=== PATIENT | female | born 1940 | race African-American/Black ===

== ENCOUNTER 2016-12-31 02:57 | Inpatient (IN) | payer MEDICARE, MEDICAID ==
[2016-12-31] VITALS (32 sets, daily range): BP systolic 110–154; BP diastolic 48–88
[~2016-12-31] VITALS: Ht 165.1 cm; Wt 97.5 kg
[~2016-12-31 02:57] MED LIST: ACET-3161 PO; ASPI-1159 PO; AZOR PO; BRIM5DRO OP; CLOP75TA33 PO; D-ME118S13 PO; DEXL60CA3 PO; ELIQUIS PO; IBUP100O15 PO; JENTADUETO PO; [UNRECOGNIZED DRUG - OTHER]
[2016-12-31] MEDS ORDERED: KETAMINE HCL 50 MG/ML 10ML IV ONE (03:00)
[2016-12-31] MEDS ORDERED: SUCCINYLCHOLINE CHLORIDE 200MG/10ML VIAL IV ONE ×2 (03:15→06:00)
[2016-12-31] MEDS ORDERED: PROPOFOL 10MG/ML 100ML 100 ML IV ONE ×2 (03:15→04:15)
[2016-12-31 03:21] LABS: BASOPHILS % 0.4 % (0.0-2.0); EOSINOPHILS % 0.9 % (0.0-5.0); HEMATOCRIT. 38.9 % (36.0-48.0); HEMOGLOBIN. 12.7 g/dL (12.0-16.0); LYMPHOCYTES % 25.5 % (20.0-50.0); MEAN CORPUSCULAR HEMOGLOBIN 26.7 pg (28.0-32.0); MEAN PLATELET VOLUME 7.4 fl (7.4-10.4); MONOCYTES % 10.7 % (2.0-8.0); NEUTROPHILS % 62.5 % (40.0-76.0); PLATELET 320 x1000/uL (130-400); RED BLOOD CELL COUNT 4.74 mill/uL (4.2-5.4); RED CELL DISTRIBUTION WIDTH 14.9 % (11.6-14.6)
[2016-12-31 03:35] LABS: PROTHROMBIN TIME 10.6 sec
[2016-12-31 03:36] LABS: CARBON DIOXIDE 19 mEq/L (21-32); CHLORIDE 94 mEq/L (98-107); TROPONIN I < 0.02 ng/mL (0.00-0.04)
[2016-12-31] MEDS ORDERED: SODIUM CHLORIDE 0.9% 1,000 ML IV ONE (04:06)
[2016-12-31] MEDS ORDERED: DIPHENHYDRAMINE 50MG/ML VIAL IV ONE (04:15)
[2016-12-31] MEDS ORDERED: DEXAMETHASONE 10MG/ML 1ML VIAL IV ONE (04:15)
[2016-12-31] MEDS ORDERED: FAMOTIDINE 20MG/2ML VIAL IV ONE (04:15)
[2016-12-31 05:01] LABS: BG BASE EXCESS -4.1 mmol/L (-2.0-2.0); BG CARBOXYHEMOGLOBIN 0.4 % (0.5-1.5); BG DEOXYHEMOGLOBIN 0.9 % (0.0-5.0); BG FRACTION INSPIRED OXYGEN 40; BG HCO3 ACT 20.1 mmol/L (22.0-26.0); BG METHEMOGLOBIN 0.5 % (0.0-1.5); BG OXYGEN SATURATION 99.1 % (92.0-98.5); BG OXYHEMOGLOBIN 98.2 % (94.0-97.0); BG PH 7.389 (7.350-7.450); BG PO2 160.8 mmHg (75.0-100.0); BG SAMPLE SITE RIGHT RADIAL; BG TIDAL VOLUME(mL) 500 mL; BG TOTAL HEMOGLOBIN 12.9 g/dL (12.0-18.0); BG VENT MODE VENT - A/C; BG VENT RATE 12 set
[2016-12-31] MEDS ORDERED: MIDAZOLAM HCL 50 MG in DEXTROSE 5% WATER 40 ML IV ONE ×4 (05:45)
[2016-12-31] MEDS ORDERED: MIDAZOLAM HCL 50 MG in DEXTROSE 5% WATER 40 ML IV PRN ×2 (05:45→08:00)
[2016-12-31] MEDS ORDERED: DIPHENHYDRAMINE 50MG/ML VIAL IV PRN (08:00)
[2016-12-31] MEDS: IPRATROPIUM/ALBUTEROL 0.5-3(2.5)MG/3ML NEB HHN SCH ×5 (08:00→23:55)
[2016-12-31] MEDS ORDERED: GUAIFENESIN 200MG/10ML SUGAR FREE UDC PO PRN (08:00)
[2016-12-31] MEDS ORDERED: ONDANSETRON HCL 4MG/2ML VIAL IV PRN (08:00)
[2016-12-31] MEDS ORDERED: CLONIDINE 0.1MG TABLET PO PRN (08:00)
[2016-12-31] MEDS ORDERED: DOCUSATE SODIUM 100MG CAPSULE PO PRN (08:00)
[2016-12-31] MEDS ORDERED: ACETAMINOPHEN 325MG TABLET PO PRN (08:00)
[2016-12-31] MEDS ORDERED: NA PHOS,M-B/NA PHOS,DI-BA ENEMA 118ML PR PRN (08:00)
[2016-12-31] MEDS ORDERED: LORAZEPAM 2MG/ML CPJ IV PRN (08:00)
[2016-12-31] MEDS ORDERED: MORPHINE SULFATE 4 MG/ML CPJ (NOT FOR IM USE) IV PRN (08:00)
[2016-12-31] MEDS ORDERED: IPRATROPIUM/ALBUTEROL 0.5-3(2.5)MG/3ML NEB INH PRN (08:00)
[2016-12-31] MEDS ORDERED: MAGNESIUM/ALUMINUM HYDROXIDE/SIMETHICONE 30ML UDC PO PRN (08:00)
[2016-12-31] MEDS: METHYLPREDNISOLONE SOD SUCC 125 MG/2 ML VIAL IV SCH ×3 (08:29→22:00)
[2016-12-31] MEDS: PANTOPRAZOLE SODIUM 40 MG/VIAL IV SCH (08:29)
[2016-12-31] MEDS: ENOXAPARIN 40MG/0.4ML SYR SUBCUT SCH (08:29)
[2016-12-31] MEDS ORDERED: METHYLPREDNISOLONE SOD SUCC 40 MG/ML VIAL IV SCH (10:15)
[2016-12-31] MEDS ORDERED: IPRATROPIUM/ALBUTEROL 0.5-3(2.5)MG/3ML NEB HHN PRN (10:15)
[2016-12-31] MEDS: FAMOTIDINE 20MG/2ML VIAL IV SCH ×2 (10:33→20:50)
[2016-12-31] MEDS: DEXT 5%/0.45% NACL 1000ML 1,000 ML IV SCH (10:34)
[2016-12-31] MEDS: DIPHENHYDRAMINE 50MG/ML VIAL IV SCH ×3 (10:34→21:59)
[2016-12-31] MEDS: MORPHINE SULFATE 2 MG/ML CPJ (NOT FOR IM USE) IV PRN ×2 (10:49→20:50)
[2016-12-31 11:18] LABS: *AMPHETAMINES SCREEN URINE NEGATIVE (NEGATIVE); *BARBITURATES SCREEN URINE NEGATIVE (NEGATIVE); *BENZODIAZEPINES SCREEN URINE PRESUMTIVE POSITIVE (NEGATIVE); *COCAINE SCREEN URINE NEGATIVE (NEGATIVE); CANNABINOID URINE SCREEN NEGATIVE (NEGATIVE); METHADONE URINE SCREEN NEGATIVE (NEGATIVE); OPIATES URINE SCREEN NEGATIVE (NEGATIVE); PHENCYCLIDINE URINE SCREEN NEGATIVE (NEGATIVE)
[2016-12-31] MEDS: BUDESONIDE 0.5MG/2ML NEB HHN SCH ×3 (11:52→23:55)
[2016-12-31] MEDS: PROPOFOL 10MG/ML 100ML 100 ML IV PRN ×2 (12:09→17:56)
[2016-12-31 16:54] LABS: CREATINE KINASE MB FRACTION 1.6 ng/mL (0.5-3.6); TROPONIN I 0.11 ng/mL (0.00-0.04)
[2016-12-31] MEDS ORDERED: DEXTROSE 50% WATER 50ML SYRINGE IV PRN (20:15)
[2016-12-31] MEDS: INSULIN LISPRO 100 UNITS/ML SUBCUT SCH (21:06)
[2016-12-31] MEDS: BLOOD SUGAR DIAGNOSTIC STRIP TEST SCH (21:14)
[2017-01-01] VITALS (44 sets, daily range): BP systolic 105–156; BP diastolic 43–94
[2017-01-01] MEDS: PROPOFOL 10MG/ML 100ML 100 ML IV PRN ×6 (00:32→20:49)
[2017-01-01] MEDS: DEXT 5%/0.45% NACL 1000ML 1,000 ML IV SCH ×3 (00:33→23:42)
[2017-01-01 01:10] LABS: CREATINE KINASE MB FRACTION 1.9 ng/mL (0.5-3.6); TROPONIN I 0.06 ng/mL (0.00-0.04)
[2017-01-01] MEDS: IPRATROPIUM/ALBUTEROL 0.5-3(2.5)MG/3ML NEB HHN SCH ×6 (04:02→23:32)
[2017-01-01] MEDS: DIPHENHYDRAMINE 50MG/ML VIAL IV SCH ×4 (04:50→22:18)
[2017-01-01] MEDS: METHYLPREDNISOLONE SOD SUCC 125 MG/2 ML VIAL IV SCH ×3 (05:25→22:18)
[2017-01-01 08:07] LABS: BG BASE EXCESS -5.6 mmol/L (-2.0-2.0); BG CARBOXYHEMOGLOBIN 0.2 % (0.5-1.5); BG DEOXYHEMOGLOBIN 1.7 % (0.0-5.0); BG FRACTION INSPIRED OXYGEN 28; BG HCO3 ACT 16.5 mmol/L (22.0-26.0); BG METHEMOGLOBIN 0.5 % (0.0-1.5); BG OXYGEN SATURATION 98.3 % (92.0-98.5); BG OXYHEMOGLOBIN 97.6 % (94.0-97.0); BG PH 7.455 (7.350-7.450); BG PO2 111.1 mmHg (75.0-100.0); BG SAMPLE SITE RIGHT RADIAL; BG TIDAL VOLUME(mL) 500 mL; BG TOTAL HEMOGLOBIN 12.8 g/dL (12.0-18.0); BG VENT MODE VENT - A/C; BG VENT RATE 12 set
[2017-01-01] MEDS: ENOXAPARIN 40MG/0.4ML SYR SUBCUT SCH (08:13)
[2017-01-01] MEDS: PANTOPRAZOLE SODIUM 40 MG/VIAL IV SCH (08:13)
[2017-01-01] MEDS: BLOOD SUGAR DIAGNOSTIC STRIP TEST SCH ×4 (08:13→20:49)
[2017-01-01] MEDS: FAMOTIDINE 20MG/2ML VIAL IV SCH ×2 (08:13→20:49)
[2017-01-01] MEDS: INSULIN LISPRO 100 UNITS/ML SUBCUT SCH ×4 (08:14→22:24)
[2017-01-01] MEDS ORDERED: PROPOFOL 10MG/ML 100ML 100 ML IV PRN (11:00)
[2017-01-01] MEDS: BUDESONIDE 0.5MG/2ML NEB HHN SCH (12:35)
[2017-01-02] VITALS (39 sets, daily range): BP systolic 124–182; BP diastolic 64–110
[2017-01-02] MEDS: PROPOFOL 10MG/ML 100ML 100 ML IV PRN ×4 (00:10→10:20)
[2017-01-02] MEDS: IPRATROPIUM/ALBUTEROL 0.5-3(2.5)MG/3ML NEB HHN SCH ×5 (03:52→20:42)
[2017-01-02] MEDS: DIPHENHYDRAMINE 50MG/ML VIAL IV SCH ×4 (04:05→22:12)
[2017-01-02] MEDS: METHYLPREDNISOLONE SOD SUCC 125 MG/2 ML VIAL IV SCH ×3 (05:44→22:13)
[2017-01-02] MEDS: BUDESONIDE 0.5MG/2ML NEB HHN SCH ×2 (08:19→20:42)
[2017-01-02] MEDS: BLOOD SUGAR DIAGNOSTIC STRIP TEST SCH ×4 (08:29→20:30)
[2017-01-02] MEDS: INSULIN LISPRO 100 UNITS/ML SUBCUT SCH ×4 (08:30→21:17)
[2017-01-02] MEDS: PANTOPRAZOLE SODIUM 40 MG/VIAL IV SCH (08:30)
[2017-01-02] MEDS: ENOXAPARIN 40MG/0.4ML SYR SUBCUT SCH (08:30)
[2017-01-02] MEDS: FAMOTIDINE 20MG/2ML VIAL IV SCH ×2 (08:30→20:29)
[2017-01-02 08:46] LABS: BG BASE EXCESS -4.7 mmol/L (-2.0-2.0); BG CARBOXYHEMOGLOBIN 0.2 % (0.5-1.5); BG DEOXYHEMOGLOBIN 3.8 % (0.0-5.0); BG FRACTION INSPIRED OXYGEN 28; BG HCO3 ACT 18.1 mmol/L (22.0-26.0); BG METHEMOGLOBIN 0.5 % (0.0-1.5); BG OXYGEN SATURATION 96.2 % (92.0-98.5); BG OXYHEMOGLOBIN 95.5 % (94.0-97.0); BG PCO2 27.5 mmHg (35.0-45.0); BG PH 7.437 (7.350-7.450); BG PO2 80.3 mmHg (75.0-100.0); BG SAMPLE SITE RIGHT RADIAL; BG TIDAL VOLUME(mL) 500 mL; BG VENT MODE VENT - A/C; BG VENT RATE 12 set
[2017-01-02] MEDS: DEXT 5%/0.45% NACL 1000ML 1,000 ML IV SCH (12:47)
[2017-01-02 15:07] LABS: BG BASE EXCESS -3.7 mmol/L (-2.0-2.0); BG CARBOXYHEMOGLOBIN 0.2 % (0.5-1.5); BG DEOXYHEMOGLOBIN 1.9 % (0.0-5.0); BG FRACTION INSPIRED OXYGEN 28; BG HCO3 ACT 18.5 mmol/L (22.0-26.0); BG METHEMOGLOBIN 0.5 % (0.0-1.5); BG OXYGEN SATURATION 98.1 % (92.0-98.5); BG OXYHEMOGLOBIN 97.4 % (94.0-97.0); BG PCO2 26.5 mmHg (35.0-45.0); BG PH 7.462 (7.350-7.450); BG PO2 106.4 mmHg (75.0-100.0); BG PRESSURE SUPPORT 14; BG SAMPLE SITE RIGHT RADIAL; BG TOTAL HEMOGLOBIN 13.7 g/dL (12.0-18.0); BG VENT MODE VENT - CPAP
[2017-01-03] VITALS (38 sets, daily range): BP systolic 93–176; BP diastolic 56–99
[2017-01-03] MEDS: IPRATROPIUM/ALBUTEROL 0.5-3(2.5)MG/3ML NEB HHN SCH ×6 (00:17→20:25)
[2017-01-03] MEDS: DEXT 5%/0.45% NACL 1000ML 1,000 ML IV SCH ×2 (01:40→16:42)
[2017-01-03] MEDS: DIPHENHYDRAMINE 50MG/ML VIAL IV SCH ×5 (04:34→22:12)
[2017-01-03] MEDS: METHYLPREDNISOLONE SOD SUCC 125 MG/2 ML VIAL IV SCH (05:57)
[2017-01-03] MEDS: BLOOD SUGAR DIAGNOSTIC STRIP TEST SCH ×4 (08:06→21:01)
[2017-01-03] MEDS: BUDESONIDE 0.5MG/2ML NEB HHN SCH ×2 (08:17→20:29)
[2017-01-03] MEDS: INSULIN LISPRO 100 UNITS/ML SUBCUT SCH ×4 (08:20→21:15)
[2017-01-03] MEDS: FAMOTIDINE 20MG/2ML VIAL IV SCH ×2 (08:21→21:15)
[2017-01-03] MEDS: PANTOPRAZOLE SODIUM 40 MG/VIAL IV SCH (08:21)
[2017-01-03] MEDS: ENOXAPARIN 40MG/0.4ML SYR SUBCUT SCH (08:23)
[2017-01-03 08:43] LABS: BG BASE EXCESS -7.1 mmol/L (-2.0-2.0); BG CARBOXYHEMOGLOBIN 0.3 % (0.5-1.5); BG DEOXYHEMOGLOBIN 2.4 % (0.0-5.0); BG FRACTION INSPIRED OXYGEN 32; BG METHEMOGLOBIN 0.1 % (0.0-1.5); BG OXYGEN SATURATION 97.6 % (92.0-98.5); BG OXYHEMOGLOBIN 97.2 % (94.0-97.0); BG PCO2 30.3 mmHg (35.0-45.0); BG PH 7.367 (7.350-7.450); BG PO2 103.9 mmHg (75.0-100.0); BG SAMPLE SITE RIGHT RADIAL; BG TOTAL HEMOGLOBIN 12.8 g/dL (12.0-18.0); BG VENT MODE NASAL CANNULA
[2017-01-03 09:36] LABS: HEMATOCRIT. 38.6 % (36.0-48.0); HEMOGLOBIN. 12.3 g/dL (12.0-16.0); MEAN CORPUSCULAR HEMOGLOBIN 26.8 pg (28.0-32.0); MEAN CORPUSCULAR VOLUME 83.9 fL (81.0-99.0); MEAN PLATELET VOLUME 7.4 fl (7.4-10.4); PLATELET 306 x1000/uL (130-400); RED CELL DISTRIBUTION WIDTH 14.9 % (11.6-14.6)
[2017-01-03 10:06] LABS: CARBON DIOXIDE 22 mEq/L (21-32); CHLORIDE 107 mEq/L (98-107)
[2017-01-03] MEDS: AMLODIPINE 5MG TABLET PO SCH (10:28)
[2017-01-03 11:24] LABS: PLATELET ESTIMATE NORMAL
[2017-01-03] MEDS: BRIMONIDINE 0.2% OPHTH DROPS 5ML BOTHEYE SCH ×2 (15:13→21:16)
[2017-01-03] MEDS: METHYLPREDNISOLONE SOD SUCC 40 MG/ML VIAL IV SCH (18:14)
[2017-01-03] MEDS ORDERED: BUDESONIDE 0.5MG/2ML NEB ONE (20:34)
[2017-01-03] MEDS: ENOXAPARIN 30MG/0.3ML SYR SUBCUT SCH (21:16)
[2017-01-04] VITALS (18 sets, daily range): BP systolic 99–158; BP diastolic 43–102
[2017-01-04] MEDS: IPRATROPIUM/ALBUTEROL 0.5-3(2.5)MG/3ML NEB HHN SCH ×6 (00:26→21:07)
[2017-01-04] MEDS: BRIMONIDINE 0.2% OPHTH DROPS 5ML BOTHEYE SCH ×3 (05:05→20:31)
[2017-01-04] MEDS: METHYLPREDNISOLONE SOD SUCC 40 MG/ML VIAL IV SCH ×2 (05:05→17:36)
[2017-01-04] MEDS: DEXT 5%/0.45% NACL 1000ML 1,000 ML IV SCH ×2 (05:05→17:41)
[2017-01-04] MEDS: DIPHENHYDRAMINE 50MG/ML VIAL IV SCH ×4 (05:05→22:38)
[2017-01-04 06:03] LABS: CARBON DIOXIDE 21 mEq/L (21-32); CHLORIDE 107 mEq/L (98-107)
[2017-01-04 07:12] LABS: BG BASE EXCESS -5.7 mmol/L (-2.0-2.0); BG CARBOXYHEMOGLOBIN 0.4 % (0.5-1.5); BG DEOXYHEMOGLOBIN 4.7 % (0.0-5.0); BG HCO3 ACT 18.2 mmol/L (22.0-26.0); BG METHEMOGLOBIN 0.4 % (0.0-1.5); BG OXYGEN SATURATION 95.3 % (92.0-98.5); BG OXYHEMOGLOBIN 94.5 % (94.0-97.0); BG PCO2 31.3 mmHg (35.0-45.0); BG PH 7.383 (7.350-7.450); BG PO2 76.8 mmHg (75.0-100.0); BG SAMPLE SITE RIGHT RADIAL; BG TOTAL HEMOGLOBIN 13.1 g/dL (12.0-18.0); BG VENT MODE ROOM AIR
[2017-01-04] MEDS: BLOOD SUGAR DIAGNOSTIC STRIP TEST SCH ×4 (07:50→20:47)
[2017-01-04] MEDS: INSULIN LISPRO 100 UNITS/ML SUBCUT SCH ×4 (08:22→21:15)
[2017-01-04] MEDS ORDERED: POTASSIUM CHLORIDE 20MEQ/PACKET PO SCH (08:45)
[2017-01-04] MEDS: FAMOTIDINE 20MG/2ML VIAL IV SCH ×2 (09:25→20:30)
[2017-01-04] MEDS: ENOXAPARIN 30MG/0.3ML SYR SUBCUT SCH ×2 (09:25→20:30)
[2017-01-04] MEDS: AMLODIPINE 5MG TABLET PO SCH (09:26)
[2017-01-04] MEDS: DORZOLAMIDE 2% OPHTH 10 ML BOTTLE BOTHEYE SCH ×2 (12:44→21:16)
[2017-01-04] MEDS: MAGNESIUM/ALUMINUM HYDROXIDE/SIMETHICONE 30ML UDC PO PRN (16:29)
[2017-01-05] VITALS (8 sets, daily range): BP systolic 142–174; BP diastolic 65–96
[2017-01-05] MEDS: IPRATROPIUM/ALBUTEROL 0.5-3(2.5)MG/3ML NEB HHN SCH ×6 (00:53→20:32)
[2017-01-05] MEDS: MAGNESIUM/ALUMINUM HYDROXIDE/SIMETHICONE 30ML UDC PO PRN (01:00)
[2017-01-05] MEDS: DIPHENHYDRAMINE 50MG/ML VIAL IV SCH (03:42)
[2017-01-05] MEDS: METHYLPREDNISOLONE SOD SUCC 40 MG/ML VIAL IV SCH (05:03)
[2017-01-05] MEDS: DORZOLAMIDE 2% OPHTH 10 ML BOTTLE BOTHEYE SCH ×3 (05:08→21:20)
[2017-01-05] MEDS: BRIMONIDINE 0.2% OPHTH DROPS 5ML BOTHEYE SCH ×3 (05:08→21:20)
[2017-01-05] MEDS: ENOXAPARIN 30MG/0.3ML SYR SUBCUT SCH ×2 (08:18→21:19)
[2017-01-05] MEDS: FAMOTIDINE 20MG/2ML VIAL IV SCH ×2 (08:18→21:27)
[2017-01-05] MEDS: AMLODIPINE 5MG TABLET PO SCH (08:26)
[2017-01-05] MEDS: BLOOD SUGAR DIAGNOSTIC STRIP TEST SCH ×4 (08:26→21:20)
[2017-01-05] MEDS: DEXT 5%/0.45% NACL 1000ML 1,000 ML IV SCH (08:46)
[2017-01-05] MEDS: INSULIN LISPRO 100 UNITS/ML SUBCUT SCH ×4 (08:47→21:18)
[2017-01-05] MEDS ORDERED: DIPHENHYDRAMINE 50MG/ML VIAL IV PRN (10:15)
[2017-01-06] VITALS: BP 144/87
[2017-01-06] MEDS: IPRATROPIUM/ALBUTEROL 0.5-3(2.5)MG/3ML NEB HHN SCH ×7 (00:37→20:34)
[2017-01-06 04:00] VITALS: BP 121/70
[2017-01-06] MEDS: DORZOLAMIDE 2% OPHTH 10 ML BOTTLE BOTHEYE SCH ×3 (05:43→21:29)
[2017-01-06] MEDS: BRIMONIDINE 0.2% OPHTH DROPS 5ML BOTHEYE SCH ×3 (05:43→21:29)
[2017-01-06] MEDS: BLOOD SUGAR DIAGNOSTIC STRIP TEST SCH ×4 (07:54→21:27)
[2017-01-06 08:00] VITALS: BP 139/71
[2017-01-06] MEDS: AMLODIPINE 5MG TABLET PO SCH (08:07)
[2017-01-06] MEDS: ENOXAPARIN 30MG/0.3ML SYR SUBCUT SCH ×2 (08:07→21:27)
[2017-01-06] MEDS: FAMOTIDINE 20MG/2ML VIAL IV SCH ×2 (08:07→21:27)
[2017-01-06] MEDS: INSULIN LISPRO 100 UNITS/ML SUBCUT SCH ×4 (08:11→21:00)
[2017-01-06 12:00] VITALS: BP 124/66
[2017-01-06 16:00] VITALS: BP 135/82
[2017-01-06 16:32] VITALS: BP 133/78
== END 2017-01-06 22:00 | DRG 915 ==
LOC: ER 02:57 → CVICU 04:08 → EDBEDREQSVC 04:13 → EDBEDREQ 04:13 → EDBEDREQTM 04:13 → ENRESERV 05:36 → 5EST 01-04 13:58
PROVIDERS: ADMIT Internal Medicine; ATTEND Internal Medicine
PROC: 5A1945Z Respiratory Ventilation, 24-96 Consecutive Hours (ICD-10-PCS; principal; 2016-12-31)
DX: T88.6XXA Anaphylactic reaction due to adverse effect of correct drug or medicament properly administered, initial encounter (principal); J96.00 Acute respiratory failure, unspecified whether with hypoxia or hypercapnia; E87.1 Hypo-osmolality and hyponatremia; T78.3XXA Angioneurotic edema, initial encounter; T46.4X5A Adverse effect of angiotensin-converting-enzyme inhibitors, initial encounter; E11.9 Type 2 diabetes mellitus without complications; I11.9 Hypertensive heart disease without heart failure; J44.9 Chronic obstructive pulmonary disease, unspecified; I48.91 Unspecified atrial fibrillation; E11.65 Type 2 diabetes mellitus with hyperglycemia; E66.9 Obesity, unspecified; E78.00 Pure hypercholesterolemia, unspecified; E11.40 Type 2 diabetes mellitus with diabetic neuropathy, unspecified; G89.29 Other chronic pain; M54.5 Low back pain; H40.9 Unspecified glaucoma; H54.40 Blindness, one eye, unspecified eye; I48.0 Paroxysmal atrial fibrillation; M19.90 Unspecified osteoarthritis, unspecified site; R13.10 Dysphagia, unspecified; Z79.4 Long term (current) use of insulin
CPT/HCPCS: 31500; 36415; 36600; 51702; 71010; 80048; 80053; 80305; 82375; 82550; 82553; 82805; 82962; 83036; 84478; 84484; 85025; 85610; 87070; 92523; 92610; 93005; 93306; 93970; 94002; 94003; 94640; 94664; 96361; 96365; 96375; 97116; 97163; 97166; 97530; 97535; 99291; C9113; J0330; J1100; J1200; J1650; J1815; J2250; J2270; J2704; J2920; J2930; J3490; J7030; J7060; J7620; J7626

== ENCOUNTER 2017-01-06 22:41 | Inpatient (IN) | payer MEDICARE, MEDICAID ==
[~2017-01-06] VITALS: Ht 165.1 cm; Wt 94.8 kg
[2017-01-06 22:30] VITALS: BP 126/72
[2017-01-06 23:00] VITALS: BP 126/72
[2017-01-06] MEDS ORDERED: NA PHOS,M-B/NA PHOS,DI-BA ENEMA 118ML PR PRN (23:30)
[2017-01-06] MEDS ORDERED: CLONIDINE 0.1MG TABLET PO PRN (23:30)
[2017-01-06] MEDS ORDERED: DIPHENHYDRAMINE 50MG/ML VIAL IV PRN (23:30)
[2017-01-06] MEDS ORDERED: DEXTROSE 50% WATER 50ML SYRINGE IV PRN (23:30)
[2017-01-06] MEDS ORDERED: ONDANSETRON HCL 4MG/2ML VIAL IV PRN (23:30)
[2017-01-07] MEDS: IPRATROPIUM/ALBUTEROL 0.5-3(2.5)MG/3ML NEB HHN SCH ×3 (01:09→09:51)
[2017-01-07 06:26] LABS: BASOPHILS % 0.3 % (0.0-2.0); EOSINOPHILS % 2.2 % (0.0-5.0); HEMATOCRIT. 35.7 % (36.0-48.0); HEMOGLOBIN. 11.8 g/dL (12.0-16.0); LYMPHOCYTES % 19.5 % (20.0-50.0); MEAN CORPUSCULAR HEMOGLOBIN 27.3 pg (28.0-32.0); MEAN CORPUSCULAR VOLUME 83.1 fL (81.0-99.0); MEAN PLATELET VOLUME 7.5 fl (7.4-10.4); MONOCYTES % 10.9 % (2.0-8.0); NEUTROPHILS % 67.1 % (40.0-76.0); PLATELET 295 x1000/uL (130-400); RED CELL DISTRIBUTION WIDTH 14.6 % (11.6-14.6)
[2017-01-07] MEDS: DORZOLAMIDE 2% OPHTH 10 ML BOTTLE BOTHEYE SCH ×3 (06:40→21:23)
[2017-01-07] MEDS: BRIMONIDINE 0.2% OPHTH DROPS 5ML BOTHEYE SCH ×3 (06:40→21:22)
[2017-01-07] MEDS: BLOOD SUGAR DIAGNOSTIC STRIP TEST SCH ×4 (06:40→21:09)
[2017-01-07 06:52] LABS: CARBON DIOXIDE 21 mEq/L (21-32); CHLORIDE 105 mEq/L (98-107)
[2017-01-07 06:58] LABS: PREALBUMIN 18.7 mg/dL (20.0-40.0)
[2017-01-07] MEDS: INSULIN LISPRO 100 UNITS/ML SUBCUT SCH ×5 (07:19→21:36)
[2017-01-07 08:00] VITALS: BP 124/68
[2017-01-07] MEDS ORDERED: FAMOTIDINE 20MG/2ML VIAL IV SCH (09:00)
[2017-01-07] MEDS ORDERED: POTASSIUM CHLORIDE 20MEQ TABLET SR PO NR ×2 (09:15→11:15)
[2017-01-07] MEDS: ENOXAPARIN 30MG/0.3ML SYR SUBCUT SCH ×2 (11:21→21:29)
[2017-01-07] MEDS: AMLODIPINE 5MG TABLET PO SCH (11:22)
[2017-01-07 11:52] LABS: T4 FREE 1.58 ng/dL (0.76-1.46)
[2017-01-07] MEDS: ACETAMINOPHEN 650MG/20.3ML UDC PO PRN (14:03)
[2017-01-07] MEDS: THROAT LOZENGES-BENZOCAINE/MENTH/CETYLPYRD CL LOZENGES MM PRN ×2 (14:04→21:23)
[2017-01-07] MEDS ORDERED: POTASSIUM CHLORIDE 20MEQ TABLET SR PO SCH (17:15)
[2017-01-07] MEDS ORDERED: POTASSIUM CHLORIDE INJ 40 MEQ in DEXT 5% WATER 500 ML IV SCH (18:00)
[2017-01-07 18:14] LABS: CLARITY URINE CLOUDY (CLEAR); COLOR URINE YELLOW (YELLOW); GLUCOSE URINE NEGATIVE (NEGATIVE); KETONES URINE NEGATIVE (NEGATIVE); LEUKOCYTE ESTERASE URINE 3+ (NEGATIVE); NITRITE URINE NEGATIVE (NEGATIVE); OCCULT BLOOD URINE NEGATIVE (NEGATIVE); PROTEIN URINE NEGATIVE (NEGATIVE); SPECIFIC GRAVITY URINE 1.014 (1.005-1.030); UROBILINOGEN URINE 0.2 E.U./dL (0.2-1.0)
[2017-01-07 20:00] VITALS: BP 105/61
[2017-01-07] MEDS: BUDESONIDE 0.5MG/2ML NEB HHN SCH (20:23)
[2017-01-08] MEDS: DORZOLAMIDE 2% OPHTH 10 ML BOTTLE BOTHEYE SCH ×3 (05:33→21:33)
[2017-01-08] MEDS: BRIMONIDINE 0.2% OPHTH DROPS 5ML BOTHEYE SCH ×3 (05:33→21:33)
[2017-01-08] MEDS: THROAT LOZENGES-BENZOCAINE/MENTH/CETYLPYRD CL LOZENGES MM PRN ×3 (05:33→20:46)
[2017-01-08] MEDS: BLOOD SUGAR DIAGNOSTIC STRIP TEST SCH ×4 (05:35→20:37)
[2017-01-08] MEDS: INSULIN LISPRO 100 UNITS/ML SUBCUT SCH ×4 (06:22→20:52)
[2017-01-08 08:00] VITALS: BP 119/62
[2017-01-08] MEDS: IPRATROPIUM/ALBUTEROL 0.5-3(2.5)MG/3ML NEB HHN PRN (09:07)
[2017-01-08] MEDS: BUDESONIDE 0.5MG/2ML NEB HHN SCH ×2 (09:07→21:17)
[2017-01-08] MEDS: AMLODIPINE 5MG TABLET PO SCH (09:17)
[2017-01-08] MEDS: ENOXAPARIN 30MG/0.3ML SYR SUBCUT SCH ×2 (09:18→20:46)
[2017-01-08] MEDS ORDERED: POTASSIUM CHLORIDE 20MEQ TABLET SR PO SCH ×3 (10:00→20:00)
[2017-01-08] MEDS ORDERED: LEVOFLOXACIN 500MG TABLET PO SCH (10:00)
[2017-01-08 12:34] LABS: CARBON DIOXIDE 23 mEq/L (21-32); CHLORIDE 105 mEq/L (98-107)
[2017-01-08] MEDS: MAGNESIUM/ALUMINUM HYDROXIDE/SIMETHICONE 30ML UDC PO PRN (13:59)
[2017-01-08] MEDS ORDERED: POTASSIUM CHLORIDE 20MEQ/PACKET PO NR (16:00)
[2017-01-08 20:00] VITALS: BP 145/73
[2017-01-09] MEDS: MAGNESIUM/ALUMINUM HYDROXIDE/SIMETHICONE 30ML UDC PO PRN ×3 (00:04→11:29)
[2017-01-09] MEDS: BLOOD SUGAR DIAGNOSTIC STRIP TEST SCH ×4 (06:29→21:28)
[2017-01-09] MEDS: DORZOLAMIDE 2% OPHTH 10 ML BOTTLE BOTHEYE SCH ×3 (06:29→21:26)
[2017-01-09] MEDS: THROAT LOZENGES-BENZOCAINE/MENTH/CETYLPYRD CL LOZENGES MM PRN ×2 (06:29→21:23)
[2017-01-09] MEDS: INSULIN LISPRO 100 UNITS/ML SUBCUT SCH ×4 (06:29→21:35)
[2017-01-09] MEDS: BRIMONIDINE 0.2% OPHTH DROPS 5ML BOTHEYE SCH ×3 (06:29→21:26)
[2017-01-09 07:23] LABS: BASOPHILS % 0.1 % (0.0-2.0); HEMATOCRIT. 34.2 % (36.0-48.0); HEMOGLOBIN. 11.1 g/dL (12.0-16.0); LYMPHOCYTES % 20.9 % (20.0-50.0); MEAN CORPUSCULAR HEMOGLOBIN 27.2 pg (28.0-32.0); MEAN CORPUSCULAR VOLUME 84.3 fL (81.0-99.0); MEAN PLATELET VOLUME 7.7 fl (7.4-10.4); MONOCYTES % 12.1 % (2.0-8.0); NEUTROPHILS % 63.9 % (40.0-76.0); PLATELET 320 x1000/uL (130-400); RED BLOOD CELL COUNT 4.06 mill/uL (4.2-5.4); RED CELL DISTRIBUTION WIDTH 14.6 % (11.6-14.6)
[2017-01-09] MEDS: BUDESONIDE 0.5MG/2ML NEB HHN SCH ×2 (07:53→20:39)
[2017-01-09] MEDS: IPRATROPIUM/ALBUTEROL 0.5-3(2.5)MG/3ML NEB HHN PRN ×2 (07:54→20:39)
[2017-01-09 08:00] VITALS: BP 142/70
[2017-01-09 08:38] LABS: CARBON DIOXIDE 24 mEq/L (21-32); CHLORIDE 107 mEq/L (98-107); HDL CHOLESTEROL 49 mg/dL (40-59); LDL CHOLESTEROL 45 mg/dL (5-100); PHOSPHORUS 2.7 mg/dL (2.5-4.9); TOTAL IRON BINDING CAPACITY 244 ug/dL (250-450)
[2017-01-09] MEDS: ACETAMINOPHEN 650MG/20.3ML UDC PO PRN (08:56)
[2017-01-09] MEDS: AMLODIPINE 5MG TABLET PO SCH (08:57)
[2017-01-09] MEDS: ENOXAPARIN 30MG/0.3ML SYR SUBCUT SCH ×2 (08:57→21:25)
[2017-01-09] MEDS ORDERED: POTASSIUM CHLORIDE 20MEQ TABLET SR PO SCH ×2 (11:00→17:30)
[2017-01-09] MEDS ORDERED: LEVOFLOXACIN 250MG TABLET PO SCH (11:00)
[2017-01-09] MEDS: ASCORBIC ACID 500 MG TABLET PO SCH (12:05)
[2017-01-09] MEDS: FERROUS SULFATE 325MG TABLET PO SCH ×2 (12:06→16:33)
[2017-01-09] MEDS: PHENOL/SODIUM PHENOLATE 1.4% SRPAY 177ML MM PRN (12:09)
[2017-01-09] MEDS: METRONIDAZOLE 250MG TABLET PO SCH ×2 (14:48→21:25)
[2017-01-09] MEDS: LIDOCAINE HCL 20 MG/ML 100ML BOTTLE MM PRN (14:49)
[2017-01-09 20:14] LABS: FOLIC ACID (FOLATE) SERUM 19.1 ng/mL (>5.38)
[2017-01-09 20:28] VITALS: BP 126/73
[2017-01-09] MEDS ORDERED: LOPERAMIDE HCL 2MG CAPSULE PO NR (20:30)
[2017-01-09] MEDS: NITROFURANTOIN 100MG M/M CAPSULE PO SCH (21:26)
[2017-01-10] MEDS: BLOOD SUGAR DIAGNOSTIC STRIP TEST SCH ×4 (05:56→21:00)
[2017-01-10] MEDS: BRIMONIDINE 0.2% OPHTH DROPS 5ML BOTHEYE SCH ×3 (05:57→22:15)
[2017-01-10] MEDS: DORZOLAMIDE 2% OPHTH 10 ML BOTTLE BOTHEYE SCH ×3 (05:57→22:15)
[2017-01-10] MEDS: METRONIDAZOLE 250MG TABLET PO SCH ×3 (05:57→22:27)
[2017-01-10] MEDS: INSULIN LISPRO 100 UNITS/ML SUBCUT SCH ×4 (06:07→22:24)
[2017-01-10 07:22] LABS: CARBON DIOXIDE 25 mEq/L (21-32); CHLORIDE 107 mEq/L (98-107)
[2017-01-10] MEDS: BUDESONIDE 0.5MG/2ML NEB HHN SCH ×2 (07:37)
[2017-01-10 08:00] VITALS: BP 131/86
[2017-01-10] MEDS: FERROUS SULFATE 325MG TABLET PO SCH ×3 (09:04→17:13)
[2017-01-10] MEDS: NITROFURANTOIN 100MG M/M CAPSULE PO SCH ×3 (09:04→22:27)
[2017-01-10] MEDS: ASCORBIC ACID 500 MG TABLET PO SCH (09:04)
[2017-01-10] MEDS: ENOXAPARIN 30MG/0.3ML SYR SUBCUT SCH ×2 (09:05→22:15)
[2017-01-10] MEDS: ACETAMINOPHEN 650MG/20.3ML UDC PO PRN ×2 (09:05→15:07)
[2017-01-10] MEDS: AMLODIPINE 5MG TABLET PO SCH (09:05)
[2017-01-10] MEDS: THROAT LOZENGES-BENZOCAINE/MENTH/CETYLPYRD CL LOZENGES MM PRN (10:54)
[2017-01-10] MEDS: MAGNESIUM/ALUMINUM HYDROXIDE/SIMETHICONE 30ML UDC PO PRN (10:57)
[2017-01-10] MEDS: PHENOL/SODIUM PHENOLATE 1.4% SRPAY 177ML MM PRN ×2 (15:09→22:15)
[2017-01-10] MEDS: POTASSIUM CHLORIDE 20MEQ TABLET SR PO SCH (17:13)
[2017-01-10 19:00] VITALS: BP 134/68
[2017-01-11] MEDS: BLOOD SUGAR DIAGNOSTIC STRIP TEST SCH ×4 (06:21→21:00)
[2017-01-11] MEDS: DORZOLAMIDE 2% OPHTH 10 ML BOTTLE BOTHEYE SCH ×3 (06:23→22:16)
[2017-01-11] MEDS: METRONIDAZOLE 250MG TABLET PO SCH ×3 (06:23→22:16)
[2017-01-11] MEDS: BRIMONIDINE 0.2% OPHTH DROPS 5ML BOTHEYE SCH ×3 (06:23→22:16)
[2017-01-11] MEDS: INSULIN LISPRO 100 UNITS/ML SUBCUT SCH ×4 (06:29→22:30)
[2017-01-11 07:05] LABS: BASOPHILS % 0.3 % (0.0-2.0); EOSINOPHILS % 3.3 % (0.0-5.0); HEMATOCRIT. 33.6 % (36.0-48.0); HEMOGLOBIN. 10.9 g/dL (12.0-16.0); LYMPHOCYTES % 21.9 % (20.0-50.0); MEAN CORPUSCULAR HEMOGLOBIN 27.3 pg (28.0-32.0); MEAN CORPUSCULAR VOLUME 83.9 fL (81.0-99.0); MEAN PLATELET VOLUME 7.8 fl (7.4-10.4); NEUTROPHILS % 62.5 % (40.0-76.0); PLATELET 321 x1000/uL (130-400); RED CELL DISTRIBUTION WIDTH 15.1 % (11.6-14.6)
[2017-01-11 08:00] VITALS: BP 141/78
[2017-01-11 08:02] LABS: CARBON DIOXIDE 25 mEq/L (21-32); CHLORIDE 106 mEq/L (98-107)
[2017-01-11] MEDS: ASCORBIC ACID 500 MG TABLET PO SCH (08:41)
[2017-01-11] MEDS: FERROUS SULFATE 325MG TABLET PO SCH ×3 (08:41→16:14)
[2017-01-11] MEDS: ENOXAPARIN 30MG/0.3ML SYR SUBCUT SCH ×2 (08:41→22:17)
[2017-01-11] MEDS: AMLODIPINE 5MG TABLET PO SCH (08:41)
[2017-01-11] MEDS: LIDOCAINE HCL 20 MG/ML 100ML BOTTLE MM PRN ×2 (09:20→16:19)
[2017-01-11] MEDS: ACETAMINOPHEN 650MG/20.3ML UDC PO PRN ×2 (09:29→16:27)
[2017-01-11] MEDS: MAGNESIUM/ALUMINUM HYDROXIDE/SIMETHICONE 30ML UDC PO PRN ×2 (10:36→19:34)
[2017-01-11 12:08] VITALS: BP 145/75
[2017-01-11] MEDS: LIDOCAINE 5% PATCH TOP SCH (12:12)
[2017-01-11] MEDS: PHENOL/SODIUM PHENOLATE 1.4% SRPAY 177ML MM PRN ×2 (12:19→22:32)
[2017-01-11] MEDS: ACYCLOVIR 400 MG TABLET PO SCH ×2 (16:14→22:16)
[2017-01-11] MEDS: POTASSIUM CHLORIDE 20MEQ TABLET SR PO SCH (16:14)
[2017-01-11 20:00] VITALS: BP 150/81
[2017-01-11] MEDS: NITROFURANTOIN 100MG M/M CAPSULE PO SCH (22:16)
[2017-01-12] MEDS: DORZOLAMIDE 2% OPHTH 10 ML BOTTLE BOTHEYE SCH ×3 (05:54→21:29)
[2017-01-12] MEDS: BRIMONIDINE 0.2% OPHTH DROPS 5ML BOTHEYE SCH ×3 (05:55→21:29)
[2017-01-12] MEDS: METRONIDAZOLE 250MG TABLET PO SCH ×3 (05:55→21:51)
[2017-01-12] MEDS: BLOOD SUGAR DIAGNOSTIC STRIP TEST SCH ×4 (05:59→21:28)
[2017-01-12] MEDS: INSULIN LISPRO 100 UNITS/ML SUBCUT SCH ×4 (06:13→21:52)
[2017-01-12 08:00] VITALS: BP 124/45
[2017-01-12] MEDS: FERROUS SULFATE 325MG TABLET PO SCH ×3 (09:19→17:13)
[2017-01-12] MEDS: NITROFURANTOIN 100MG M/M CAPSULE PO SCH ×2 (09:19→21:28)
[2017-01-12] MEDS: ASCORBIC ACID 500 MG TABLET PO SCH (09:19)
[2017-01-12] MEDS: ENOXAPARIN 30MG/0.3ML SYR SUBCUT SCH ×2 (09:20→21:30)
[2017-01-12] MEDS: AMLODIPINE 5MG TABLET PO SCH (09:20)
[2017-01-12] MEDS: LIDOCAINE 5% PATCH TOP SCH (09:20)
[2017-01-12] MEDS: ACYCLOVIR 400 MG TABLET PO SCH ×3 (09:21→21:28)
[2017-01-12] MEDS: PHENOL/SODIUM PHENOLATE 1.4% SRPAY 177ML MM PRN ×2 (09:45→21:28)
[2017-01-12] MEDS: ACETAMINOPHEN 650MG/20.3ML UDC PO PRN ×2 (09:45→21:51)
[2017-01-12] MEDS: POTASSIUM CHLORIDE 20MEQ TABLET SR PO SCH (17:14)
[2017-01-12 20:00] VITALS: BP 130/68
[2017-01-13] MEDS: THROAT LOZENGES-BENZOCAINE/MENTH/CETYLPYRD CL LOZENGES MM PRN (01:19)
[2017-01-13] MEDS: DORZOLAMIDE 2% OPHTH 10 ML BOTTLE BOTHEYE SCH ×3 (05:42→21:41)
[2017-01-13] MEDS: BLOOD SUGAR DIAGNOSTIC STRIP TEST SCH ×4 (05:42→20:26)
[2017-01-13] MEDS: METRONIDAZOLE 250MG TABLET PO SCH ×3 (05:42→21:41)
[2017-01-13] MEDS: BRIMONIDINE 0.2% OPHTH DROPS 5ML BOTHEYE SCH ×3 (05:42→21:41)
[2017-01-13 06:13] LABS: BASOPHILS % 0.5 % (0.0-2.0); EOSINOPHILS % 3.5 % (0.0-5.0); HEMATOCRIT. 34.3 % (36.0-48.0); HEMOGLOBIN. 11.2 g/dL (12.0-16.0); LYMPHOCYTES % 25.4 % (20.0-50.0); MEAN CORPUSCULAR HEMOGLOBIN 27.4 pg (28.0-32.0); MEAN CORPUSCULAR VOLUME 83.8 fL (81.0-99.0); MEAN PLATELET VOLUME 7.5 fl (7.4-10.4); MONOCYTES % 12.9 % (2.0-8.0); NEUTROPHILS % 57.7 % (40.0-76.0); PLATELET 301 x1000/uL (130-400); RED CELL DISTRIBUTION WIDTH 15.2 % (11.6-14.6)
[2017-01-13] MEDS: INSULIN LISPRO 100 UNITS/ML SUBCUT SCH ×4 (06:28→21:55)
[2017-01-13 06:43] LABS: CARBON DIOXIDE 24 mEq/L (21-32); CHLORIDE 105 mEq/L (98-107)
[2017-01-13 07:20] LABS: 25-HYDROXY VITAMIN D3 33 ng/mL (.)
[2017-01-13 08:00] VITALS: BP 118/59
[2017-01-13] MEDS: FERROUS SULFATE 325MG TABLET PO SCH ×3 (10:08→17:41)
[2017-01-13] MEDS: ASCORBIC ACID 500 MG TABLET PO SCH (10:08)
[2017-01-13] MEDS: AMLODIPINE 5MG TABLET PO SCH (10:09)
[2017-01-13] MEDS: NITROFURANTOIN 100MG M/M CAPSULE PO SCH ×2 (10:09→20:26)
[2017-01-13] MEDS: ACYCLOVIR 400 MG TABLET PO SCH ×3 (10:09→20:26)
[2017-01-13] MEDS: ENOXAPARIN 30MG/0.3ML SYR SUBCUT SCH ×2 (10:11→20:27)
[2017-01-13] MEDS: PHENOL/SODIUM PHENOLATE 1.4% SRPAY 177ML MM PRN ×2 (10:12→21:41)
[2017-01-13] MEDS: ACETAMINOPHEN 650MG/20.3ML UDC PO PRN ×2 (10:12→20:26)
[2017-01-13] MEDS: LIDOCAINE 5% PATCH TOP SCH (10:13)
[2017-01-13] MEDS: BUDESONIDE 0.5MG/2ML NEB HHN SCH ×2 (11:46→20:52)
[2017-01-13] MEDS: IPRATROPIUM/ALBUTEROL 0.5-3(2.5)MG/3ML NEB HHN PRN ×2 (11:48→20:52)
[2017-01-13] MEDS: POTASSIUM CHLORIDE 20MEQ TABLET SR PO SCH (17:41)
[2017-01-13 20:00] VITALS: BP 116/73
[2017-01-14] MEDS: BLOOD SUGAR DIAGNOSTIC STRIP TEST SCH ×4 (06:08→21:24)
[2017-01-14] MEDS: THROAT LOZENGES-BENZOCAINE/MENTH/CETYLPYRD CL LOZENGES MM PRN ×2 (06:08→17:03)
[2017-01-14] MEDS: METRONIDAZOLE 250MG TABLET PO SCH ×3 (06:08→22:22)
[2017-01-14] MEDS: DORZOLAMIDE 2% OPHTH 10 ML BOTTLE BOTHEYE SCH ×3 (06:08→21:43)
[2017-01-14] MEDS: BRIMONIDINE 0.2% OPHTH DROPS 5ML BOTHEYE SCH ×3 (06:08→21:43)
[2017-01-14] MEDS: INSULIN LISPRO 100 UNITS/ML SUBCUT SCH ×4 (06:16→21:34)
[2017-01-14] MEDS: IPRATROPIUM/ALBUTEROL 0.5-3(2.5)MG/3ML NEB HHN PRN ×2 (06:39→21:18)
[2017-01-14] MEDS: BUDESONIDE 0.5MG/2ML NEB HHN SCH ×2 (07:13→21:18)
[2017-01-14 08:00] VITALS: BP 116/63
[2017-01-14] MEDS: NITROFURANTOIN 100MG M/M CAPSULE PO SCH ×2 (08:20→21:24)
[2017-01-14] MEDS: FERROUS SULFATE 325MG TABLET PO SCH ×3 (08:20→16:47)
[2017-01-14] MEDS: ACYCLOVIR 400 MG TABLET PO SCH ×3 (08:20→21:24)
[2017-01-14] MEDS: ASCORBIC ACID 500 MG TABLET PO SCH (08:20)
[2017-01-14] MEDS: AMLODIPINE 5MG TABLET PO SCH (08:21)
[2017-01-14] MEDS: ENOXAPARIN 30MG/0.3ML SYR SUBCUT SCH ×2 (08:22→21:29)
[2017-01-14] MEDS: LIDOCAINE 5% PATCH TOP SCH (08:23)
[2017-01-14] MEDS: SUCRALFATE 1G TABLET PO SCH ×3 (10:48→21:24)
[2017-01-14] MEDS: PHENOL/SODIUM PHENOLATE 1.4% SRPAY 177ML MM PRN (13:58)
[2017-01-14] MEDS: ACETAMINOPHEN 650MG/20.3ML UDC PO PRN ×2 (15:54→22:22)
[2017-01-14] MEDS: POTASSIUM CHLORIDE 20MEQ TABLET SR PO SCH (16:47)
[2017-01-14] MEDS: MAGNESIUM/ALUMINUM HYDROXIDE/SIMETHICONE 30ML UDC PO PRN (19:50)
[2017-01-14 20:00] VITALS: BP 148/66
[2017-01-15] MEDS: PHENOL/SODIUM PHENOLATE 1.4% SRPAY 177ML MM PRN (05:06)
[2017-01-15] MEDS: BRIMONIDINE 0.2% OPHTH DROPS 5ML BOTHEYE SCH ×2 (06:17→13:51)
[2017-01-15] MEDS: SUCRALFATE 1G TABLET PO SCH ×2 (06:17→12:36)
[2017-01-15] MEDS: METRONIDAZOLE 250MG TABLET PO SCH ×2 (06:17→13:51)
[2017-01-15] MEDS: DORZOLAMIDE 2% OPHTH 10 ML BOTTLE BOTHEYE SCH ×2 (06:17→13:51)
[2017-01-15] MEDS: BLOOD SUGAR DIAGNOSTIC STRIP TEST SCH ×2 (06:18→11:15)
[2017-01-15] MEDS: INSULIN LISPRO 100 UNITS/ML SUBCUT SCH ×2 (06:19→13:54)
[2017-01-15] MEDS: IPRATROPIUM/ALBUTEROL 0.5-3(2.5)MG/3ML NEB HHN PRN (07:32)
[2017-01-15] MEDS: BUDESONIDE 0.5MG/2ML NEB HHN SCH (07:32)
[2017-01-15 08:00] VITALS: BP 116/64
[2017-01-15] MEDS: FERROUS SULFATE 325MG TABLET PO SCH ×2 (10:02→12:36)
[2017-01-15] MEDS: ACETAMINOPHEN 650MG/20.3ML UDC PO PRN (10:02)
[2017-01-15] MEDS: ASCORBIC ACID 500 MG TABLET PO SCH (10:02)
[2017-01-15] MEDS: ACYCLOVIR 400 MG TABLET PO SCH (10:02)
[2017-01-15] MEDS: AMLODIPINE 5MG TABLET PO SCH (10:03)
[2017-01-15] MEDS: NITROFURANTOIN 100MG M/M CAPSULE PO SCH (10:03)
[2017-01-15] MEDS: LIDOCAINE 5% PATCH TOP SCH (10:04)
[2017-01-15] MEDS: ENOXAPARIN 30MG/0.3ML SYR SUBCUT SCH (10:05)
[2017-01-15] MEDS: THROAT LOZENGES-BENZOCAINE/MENTH/CETYLPYRD CL LOZENGES MM PRN (10:13)
[2017-01-15 12:58] VITALS: BP 116/64
== END 2017-01-15 15:00 | disposition home health service (06) | DRG 73 ==
PROVIDERS: ADMIT Physical Medicine & Rehabilitation Spinal Cord Injury Medicine; ATTEND Internal Medicine
DX: G62.81 Critical illness polyneuropathy (principal); J96.90 Respiratory failure, unspecified, unspecified whether with hypoxia or hypercapnia; E43 Unspecified severe protein-calorie malnutrition; G93.40 Encephalopathy, unspecified; A41.9 Sepsis, unspecified organism; N39.0 Urinary tract infection, site not specified; T78.2XXA Anaphylactic shock, unspecified, initial encounter; I10 Essential (primary) hypertension; Z79.4 Long term (current) use of insulin; T78.3XXA Angioneurotic edema, initial encounter; R47.02 Dysphasia; R13.10 Dysphagia, unspecified; M17.9 Osteoarthritis of knee, unspecified; M16.9 Osteoarthritis of hip, unspecified; J44.9 Chronic obstructive pulmonary disease, unspecified; I48.0 Paroxysmal atrial fibrillation; H40.9 Unspecified glaucoma; G89.29 Other chronic pain; E87.6 Hypokalemia; E78.00 Pure hypercholesterolemia, unspecified; E66.9 Obesity, unspecified; E11.9 Type 2 diabetes mellitus without complications; M54.5 Low back pain; J02.9 Acute pharyngitis, unspecified; R53.81 Other malaise; T46.4X5A Adverse effect of angiotensin-converting-enzyme inhibitors, initial encounter; F39 Unspecified mood [affective] disorder; F06.8 Other specified mental disorders due to known physiological condition; H54.41 Blindness, right eye, normal vision left eye; L68.0 Hirsutism; F06.31 Mood disorder due to known physiological condition with depressive features; Z88.8 Allergy status to other drugs, medicaments and biological substances; Z79.899 Other long term (current) drug therapy; Z68.34 Body mass index [BMI] 34.0-34.9, adult
CPT/HCPCS: 36415; 70490; 71010; 74000; 80048; 80053; 80061; 81001; 82270; 82306; 82607; 82728; 82746; 82962; 83036; 83540; 83550; 83735; 84100; 84132; 84134; 84439; 84443; 84481; 84630; 85025; 87077; 87086; 87186; 92523; 92610; 93970; 94640; 97110; 97116; 97163; 97167; 97530; 97532; 97535; C1893; J1650; J1815; J3480; J7050; J7060; J7620; J7626

== ENCOUNTER 2017-02-27 16:25 | Inpatient (IN) | payer MEDICARE, MEDICAID ==
[~2017-02-27] VITALS: Ht 167.6 cm; Wt 100.7 kg
[2017-02-27] VITALS: BP 113/71
[~2017-02-27 16:25] MED LIST changes: -ACET-3161 PO; -AZOR PO; -CLOP75TA33 PO; -D-ME118S13 PO; -DEXL60CA3 PO; -ELIQUIS PO; -IBUP100O15 PO; +IOHEXOL-350 100 ML BOTTLE ONE; -JENTADUETO PO; +SODIUM CHLORIDE 0.9% 10ML VIAL ONE; -[UNRECOGNIZED DRUG - OTHER]
[2017-02-27] MEDS ORDERED: AMLO2.5T45 PO (16:47)
[2017-02-27] MEDS ORDERED: ASCO125T PO (16:47)
[2017-02-27] MEDS ORDERED: ASPIRIN 81MG TABLET PO STA (16:57)
[2017-02-27] MEDS ORDERED: FUROSEMIDE 40MG/4ML VIAL IV STA (16:57)
[2017-02-27] MEDS ORDERED: NITROGLYCERIN OINT 1GM/INCH UDPKT TD STA (16:57)
[2017-02-27] MEDS ORDERED: FAMOTIDINE 20MG/2ML VIAL IV ONE (17:00)
[2017-02-27] MEDS ORDERED: METHYLPREDNISOLONE SOD SUCC 125 MG/2 ML VIAL IV ONE (17:00)
[2017-02-27] MEDS ORDERED: DIPHENHYDRAMINE 50MG/ML VIAL IV ONE (17:00)
[2017-02-27 17:30] LABS: PARTIAL THROMBOPLASTIN TIME 25.2 sec (23.4-31.0); PROTHROMBIN TIME 10.1 sec (9.4-11.6)
[2017-02-27 17:34] LABS: BASOPHILS % 0.5 % (0.0-2.0); HEMATOCRIT. 41.3 % (36.0-48.0); HEMOGLOBIN. 13.5 g/dL (12.0-16.0); LYMPHOCYTES % 26.9 % (20.0-50.0); MEAN CORPUSCULAR HEMOGLOBIN 27.7 pg (28.0-32.0); MEAN CORPUSCULAR VOLUME 84.6 fL (81.0-99.0); MEAN PLATELET VOLUME 8.4 fl (7.4-10.4); MONOCYTES % 7.9 % (2.0-8.0); NEUTROPHILS % 60.7 % (40.0-76.0); PLATELET 296 x1000/uL (130-400); RED BLOOD CELL COUNT 4.88 mill/uL (4.2-5.4); RED CELL DISTRIBUTION WIDTH 15.7 % (11.6-14.6)
[2017-02-27 17:38] LABS: CARBON DIOXIDE 24 mEq/L (21-32); CHLORIDE 103 mEq/L (98-107); TROPONIN I < 0.02 ng/mL (0.00-0.04)
[2017-02-27 18:13] LABS: CLARITY URINE CLEAR (CLEAR); COLOR URINE YELLOW (YELLOW); GLUCOSE URINE NEGATIVE (NEGATIVE); KETONES URINE NEGATIVE (NEGATIVE); LEUKOCYTE ESTERASE URINE NEGATIVE (NEGATIVE); NITRITE URINE NEGATIVE (NEGATIVE); OCCULT BLOOD URINE NEGATIVE (NEGATIVE); PROTEIN URINE NEGATIVE (NEGATIVE); SPECIFIC GRAVITY URINE 1.009 (1.005-1.030); UROBILINOGEN URINE 0.2 E.U./dL (0.2-1.0)
[2017-02-27] MEDS ORDERED: CLONIDINE 0.1MG TABLET PO PRN (20:30)
[2017-02-27] MEDS ORDERED: ACETAMINOPHEN 650MG SUPP PR PRN (20:30)
[2017-02-27] MEDS ORDERED: DOCUSATE SODIUM 100MG CAPSULE PO PRN (20:30)
[2017-02-27] MEDS ORDERED: ONDANSETRON HCL 4MG/2ML VIAL IV PRN (20:30)
[2017-02-27] MEDS ORDERED: MAGNESIUM/ALUMINUM HYDROXIDE/SIMETHICONE 30ML UDC PO PRN (20:30)
[2017-02-27] MEDS ORDERED: DIPHENHYDRAMINE 50MG/ML VIAL IV PRN (20:30)
[2017-02-27] MEDS ORDERED: DEXTROSE 50% WATER 50ML SYRINGE IV PRN (20:30)
[2017-02-27] MEDS ORDERED: ACETAMINOPHEN 650MG/20.3ML UDC GT PRN (20:30)
[2017-02-27] MEDS ORDERED: HYDROCODONE/ACETAMINOPHEN 5/325MG TABLET PO PRN (20:30)
[2017-02-27] MEDS ORDERED: NA PHOS,M-B/NA PHOS,DI-BA ENEMA 118ML PR PRN (20:30)
[2017-02-27] MEDS ORDERED: IPRATROPIUM/ALBUTEROL 0.5-3(2.5)MG/3ML NEB INH PRN (20:30)
[2017-02-27 23:33] LABS: CREATINE KINASE 41 IU/L (26-192); CREATINE KINASE MB FRACTION 0.6 ng/mL (0.5-3.6); TROPONIN I < 0.02 ng/mL (0.00-0.04)
[2017-02-27 23:50] VITALS: BP 124/79
[2017-02-28] VITALS: BP 113/71
[2017-02-28] MEDS: GUAIFENESIN 200MG/10ML SUGAR FREE UDC PO PRN ×2 (00:16→21:05)
[2017-02-28 04:00] VITALS: BP 154/70
[2017-02-28] MEDS: BLOOD SUGAR DIAGNOSTIC STRIP TEST SCH ×4 (05:58→20:56)
[2017-02-28] MEDS: SODIUM CHLORIDE 0.9% INJ 3ML FLUSH IVF SCH ×4 (06:05→21:10)
[2017-02-28 06:06] LABS: BASOPHILS % 0.2 % (0.0-2.0); HEMATOCRIT. 42.5 % (36.0-48.0); HEMOGLOBIN. 13.8 g/dL (12.0-16.0); LYMPHOCYTES % 14.7 % (20.0-50.0); MEAN CORPUSCULAR HEMOGLOBIN 27.7 pg (28.0-32.0); MEAN PLATELET VOLUME 8.7 fl (7.4-10.4); MONOCYTES % 0.7 % (2.0-8.0); NEUTROPHILS % 84.4 % (40.0-76.0); PLATELET 303 x1000/uL (130-400); RED CELL DISTRIBUTION WIDTH 15.5 % (11.6-14.6)
[2017-02-28] MEDS: INSULIN LISPRO 100 UNITS/ML SUBCUT SCH ×4 (06:14→21:09)
[2017-02-28 06:53] LABS: CHLORIDE 100 mEq/L (98-107)
[2017-02-28 07:04] LABS: CARBON DIOXIDE 23 mEq/L (21-32); CREATINE KINASE 39 IU/L (26-192); CREATINE KINASE MB FRACTION 0.7 ng/mL (0.5-3.6); HDL CHOLESTEROL 68 mg/dL (40-59); LDL CHOLESTEROL 108 mg/dL (5-100); TROPONIN I < 0.02 ng/mL (0.00-0.04)
[2017-02-28 08:00] VITALS: BP 130/66
[2017-02-28] MEDS ORDERED: REGADENOSON 0.4 MG/5 ML IV ONE (08:30)
[2017-02-28] MEDS: FUROSEMIDE 40MG/4ML VIAL IV SCH (08:33)
[2017-02-28] MEDS: ASPIRIN 81MG TABLET PO SCH (08:34)
[2017-02-28] MEDS: ENOXAPARIN 30MG/0.3ML SYR SUBCUT SCH ×2 (08:34→21:05)
[2017-02-28 09:30] LABS: *AMPHETAMINES SCREEN URINE NEGATIVE (NEGATIVE); *BARBITURATES SCREEN URINE NEGATIVE (NEGATIVE); *BENZODIAZEPINES SCREEN URINE NEGATIVE (NEGATIVE); *COCAINE SCREEN URINE NEGATIVE (NEGATIVE); CANNABINOID URINE SCREEN NEGATIVE (NEGATIVE); METHADONE URINE SCREEN NEGATIVE (NEGATIVE); OPIATES URINE SCREEN NEGATIVE (NEGATIVE); PHENCYCLIDINE URINE SCREEN NEGATIVE (NEGATIVE)
[2017-02-28 09:48] LABS: T4 FREE 1.11 ng/dL (0.76-1.46)
[2017-02-28 12:00] VITALS: BP 125/57
[2017-02-28] MEDS ORDERED: DEXTROSE 50% WATER 50ML SYRINGE IV PRN (14:30)
[2017-02-28] MEDS: INSULIN DETEMIR UD 100 UNITS/ML SYR SUBCUT SCH ×2 (15:00→21:09)
[2017-02-28] MEDS: FERROUS SULFATE 325MG TABLET PO SCH (15:35)
[2017-02-28 16:00] VITALS: BP 135/77
[2017-02-28 16:26] LABS: CREATINE KINASE 50 IU/L (26-192); CREATINE KINASE MB FRACTION 0.9 ng/mL (0.5-3.6); TROPONIN I < 0.02 ng/mL (0.00-0.04)
[2017-02-28] MEDS ORDERED: BLOOD SUGAR DIAGNOSTIC STRIP TEST SCH (16:45)
[2017-02-28 20:00] VITALS: BP 134/73
[2017-02-28] MEDS: ACETAMINOPHEN 325MG TABLET PO PRN (21:05)
[2017-03-01] VITALS: BP 99/54
[2017-03-01 00:58] LABS: CREATINE KINASE 48 IU/L (26-192); CREATINE KINASE MB FRACTION 1.3 ng/mL (0.5-3.6); TROPONIN I < 0.02 ng/mL (0.00-0.04)
[2017-03-01 04:00] VITALS: BP 109/61
[2017-03-01] MEDS: SODIUM CHLORIDE 0.9% INJ 3ML FLUSH IVF SCH ×3 (06:25→22:30)
[2017-03-01] MEDS: BLOOD SUGAR DIAGNOSTIC STRIP TEST SCH ×4 (06:25→21:00)
[2017-03-01] MEDS: INSULIN LISPRO 100 UNITS/ML SUBCUT SCH ×4 (06:26→22:25)
[2017-03-01 07:01] LABS: CREATINE KINASE 47 IU/L (26-192); CREATINE KINASE MB FRACTION 1.2 ng/mL (0.5-3.6); TROPONIN I < 0.02 ng/mL (0.00-0.04)
[2017-03-01 08:00] VITALS: BP 146/81
[2017-03-01] MEDS: FUROSEMIDE 40MG/4ML VIAL IV SCH (10:21)
[2017-03-01] MEDS: ASCORBIC ACID 500 MG TABLET PO SCH (10:22)
[2017-03-01] MEDS: FERROUS SULFATE 325MG TABLET PO SCH (10:22)
[2017-03-01] MEDS: ENOXAPARIN 30MG/0.3ML SYR SUBCUT SCH ×2 (10:22→22:22)
[2017-03-01] MEDS: ASPIRIN 81MG TABLET PO SCH (10:22)
[2017-03-01] MEDS: GUAIFENESIN 200MG/10ML SUGAR FREE UDC PO PRN ×2 (10:31→23:28)
[2017-03-01] MEDS: ACETAMINOPHEN 325MG TABLET PO PRN ×2 (10:32→23:28)
[2017-03-01] MEDS: INSULIN DETEMIR UD 100 UNITS/ML SYR SUBCUT SCH ×2 (10:33→22:25)
[2017-03-01 10:51] LABS: T4 FREE 1.17 ng/dL (0.76-1.46)
[2017-03-01 12:00] VITALS: BP 161/90
[2017-03-01 15:39] LABS: CREATINE KINASE 42 IU/L (26-192); CREATINE KINASE MB FRACTION 1.2 ng/mL (0.5-3.6); TROPONIN I < 0.02 ng/mL (0.00-0.04)
[2017-03-01 16:00] VITALS: BP 121/76
[2017-03-01 20:00] VITALS: BP 123/74
[2017-03-01 23:49] LABS: CREATINE KINASE 36 IU/L (26-192); CREATINE KINASE MB FRACTION 0.9 ng/mL (0.5-3.6); TROPONIN I < 0.02 ng/mL (0.00-0.04)
[2017-03-02] VITALS: BP 106/62
[2017-03-02 04:00] VITALS: BP 109/60
[2017-03-02] MEDS: SODIUM CHLORIDE 0.9% INJ 3ML FLUSH IVF SCH (06:28)
[2017-03-02] MEDS: BLOOD SUGAR DIAGNOSTIC STRIP TEST SCH (06:28)
[2017-03-02] MEDS: INSULIN LISPRO 100 UNITS/ML SUBCUT SCH (06:31)
[2017-03-02 06:43] LABS: CREATINE KINASE 31 IU/L (26-192); CREATINE KINASE MB FRACTION 0.6 ng/mL (0.5-3.6); TROPONIN I < 0.02 ng/mL (0.00-0.04)
[2017-03-02 07:56] VITALS: BP 130/72
[2017-03-02 08:20] VITALS: BP 148/90
[2017-03-02] MEDS ORDERED: REGADENOSON 0.4 MG/5 ML IV ONE (08:21)
[2017-03-02 08:28] VITALS: BP 135/53
[2017-03-02] MEDS: FUROSEMIDE 40MG/4ML VIAL IV SCH (09:21)
[2017-03-02] MEDS: ASPIRIN 81MG TABLET PO SCH (09:21)
[2017-03-02] MEDS: ASCORBIC ACID 500 MG TABLET PO SCH (09:21)
[2017-03-02] MEDS: FERROUS SULFATE 325MG TABLET PO SCH (09:21)
[2017-03-02] MEDS: ENOXAPARIN 30MG/0.3ML SYR SUBCUT SCH (09:22)
[2017-03-02] MEDS: INSULIN DETEMIR UD 100 UNITS/ML SYR SUBCUT SCH (10:00)
== END 2017-03-02 11:25 | disposition home health service (06) | DRG 293 ==
LOC: ER 17:15 → 5WST 19:13 → EDBEDREQ 19:19 → ENRESERV 19:26
PROVIDERS: ADMIT Family Medicine; ATTEND Family Medicine
DX: I50.31 Acute diastolic (congestive) heart failure (principal); I48.0 Paroxysmal atrial fibrillation; E11.9 Type 2 diabetes mellitus without complications; R13.10 Dysphagia, unspecified; K21.9 Gastro-esophageal reflux disease without esophagitis; J44.9 Chronic obstructive pulmonary disease, unspecified; M19.90 Unspecified osteoarthritis, unspecified site; E78.5 Hyperlipidemia, unspecified; H40.9 Unspecified glaucoma; H54.62 Unqualified visual loss, left eye, normal vision right eye; I10 Essential (primary) hypertension; J45.909 Unspecified asthma, uncomplicated; E66.9 Obesity, unspecified; Z90.710 Acquired absence of both cervix and uterus; Z98.1 Arthrodesis status; Z88.8 Allergy status to other drugs, medicaments and biological substances; Z79.899 Other long term (current) drug therapy; Z79.82 Long term (current) use of aspirin; Z68.35 Body mass index [BMI] 35.0-35.9, adult; M40.202 Unspecified kyphosis, cervical region; R79.1 Abnormal coagulation profile; Z85.6 Personal history of leukemia
CPT/HCPCS: 36415; 51702; 71010; 71275; 78452; 80053; 80061; 80305; 81003; 82550; 82553; 82962; 83036; 83880; 84439; 84443; 84484; 85025; 85379; 85610; 85730; 87086; 93005; 93017; 93306; 93970; 96374; 96375; 97116; 97161; 97530; 99285; A4216; A9500; J1200; J1650; J1815; J1940; J2785; J2930; J3490; Q9967; A4315

== ENCOUNTER 2021-03-12 16:49 | Inpatient (IN) | payer MEDICARE, MEDICAID ==
[~2021-03-12] VITALS: Ht 157.5 cm; Wt 87.5 kg
[~2021-03-12 16:49] MED LIST changes: +AMLO2.5T45 PO; +ASCO125T PO; -ASPI-1159 PO; +ASPI-1497 PO; -IOHEXOL-350 100 ML BOTTLE ONE; -SODIUM CHLORIDE 0.9% 10ML VIAL ONE
[2021-03-12 17:29] LABS: BASOPHILS % 0.4 % (0.0-2.0); EOSINOPHILS % 1.6 % (0.0-5.0); HEMATOCRIT. 35.8 % (36.0-48.0); HEMOGLOBIN. 11.7 g/dL (12.0-16.0); LYMPHOCYTES % 8.3 % (20.0-50.0); MEAN CORPUSCULAR VOLUME 88.7 fL (81.0-99.0); MEAN PLATELET VOLUME 7.1 fl (7.4-10.4); MONOCYTES % 8.2 % (2.0-8.0); NEUTROPHILS % 81.5 % (40.0-76.0); PLATELET 322 x1000/uL (130-400); RED BLOOD CELL COUNT 4.04 mill/uL (4.2-5.4); RED CELL DISTRIBUTION WIDTH 14.9 % (11.6-14.6)
[2021-03-12 17:33] LABS: CHLORIDE 112 mEq/L (98-107)
[2021-03-12] MEDS ORDERED: ZOLPIDEM TARTRATE 5MG TABLET PO PRN (20:45)
[2021-03-12] MEDS ORDERED: NITROGLYCERIN 0.4MG TABLET SL SL PRN (20:45)
[2021-03-12] MEDS ORDERED: MAGNESIUM/ALUMINUM HYDROXIDE/SIMETHICONE 30ML UDC PO PRN (20:45)
[2021-03-12] MEDS ORDERED: ONDANSETRON HCL 4MG/2ML INJ IV PRN (20:45)
[2021-03-12] MEDS ORDERED: TRAMADOL 50MG TABLET PO PRN (20:45)
[2021-03-12] MEDS ORDERED: IPRATROPIUM/ALBUTEROL 0.5-3(2.5)MG/3ML NEB NEB PRN (20:45)
[2021-03-12] MEDS ORDERED: NA PHOS,M-B/NA PHOS,DI-BA ENEMA 118ML PR PRN (20:45)
[2021-03-12] MEDS ORDERED: GUAIFENESIN 200MG/10ML SUGAR FREE UDC PO PRN (20:45)
[2021-03-12] MEDS ORDERED: DOCUSATE SODIUM 100MG CAPSULE PO PRN (20:45)
[2021-03-12] MEDS ORDERED: DEXTROSE 50% WATER 50ML SYRINGE IV PRN (20:45)
[2021-03-12] MEDS ORDERED: CLONIDINE 0.1MG TABLET PO PRN (20:45)
[2021-03-12] MEDS ORDERED: ACETAMINOPHEN 325MG TABLET PO PRN ×2 (20:45)
[2021-03-12] MEDS ORDERED: ENOXAPARIN 40MG/0.4ML SYR SUBCUT SCH (20:45)
[2021-03-12] MEDS: INSULIN LISPRO 100 UNITS/ML SUBCUT SCH (21:00)
[2021-03-12 21:25] LABS: *BARBITURATES SCREEN URINE NEGATIVE (NEGATIVE); *BENZODIAZEPINES SCREEN URINE NEGATIVE (NEGATIVE); *COCAINE SCREEN URINE NEGATIVE (NEGATIVE)
[2021-03-12 21:26] LABS: *AMPHETAMINES SCREEN URINE NEGATIVE (NEGATIVE); CANNABINOID URINE SCREEN NEGATIVE (NEGATIVE); METHADONE URINE SCREEN NEGATIVE (NEGATIVE); OPIATES URINE SCREEN PRESUMTIVE POSITIVE (NEGATIVE); PHENCYCLIDINE URINE SCREEN NEGATIVE (NEGATIVE)
[2021-03-12] MEDS: BLOOD SUGAR DIAGNOSTIC STRIP TEST SCH (21:47)
[2021-03-12] MEDS: METOPROLOL TARTRATE 25MG TABLET PO SCH (21:54)
[2021-03-12] MEDS: ASCORBIC ACID 500 MG TABLET PO SCH (21:54)
[2021-03-12] MEDS: FAMOTIDINE 20MG TABLET PO SCH (21:54)
[2021-03-12] MEDS: ENOXAPARIN 30MG/0.3ML SYR SUBCUT SCH (21:55)
[2021-03-12 21:58] LABS: TOTAL IRON BINDING CAPACITY 275 ug/dL (250-450)
[2021-03-13 01:00] VITALS: BP 136/58
[2021-03-13] MEDS ORDERED: IBUP-2030 PO (01:27)
[2021-03-13] MEDS ORDERED: KETO5DRO80 EACHEYE (01:32)
[2021-03-13] MEDS ORDERED: SPIR25TA6 MT (01:36)
[2021-03-13] MEDS ORDERED: MECL-159 MT (01:38)
[2021-03-13] MEDS ORDERED: FAMO-135 PO (01:40)
[2021-03-13] MEDS ORDERED: LINA1TAB5 MT (01:43)
[2021-03-13] MEDS ORDERED: CHOL2000 (01:48)
[2021-03-13] MEDS: BLOOD SUGAR DIAGNOSTIC STRIP TEST SCH ×5 (05:41→21:54)
[2021-03-13 07:08] LABS: BASOPHILS % 0.4 % (0.0-2.0); EOSINOPHILS % 4.2 % (0.0-5.0); HEMATOCRIT. 34.8 % (36.0-48.0); HEMOGLOBIN. 11.4 g/dL (12.0-16.0); LYMPHOCYTES % 15.8 % (20.0-50.0); MEAN CORPUSCULAR HEMOGLOBIN 29.2 pg (28.0-32.0); MEAN CORPUSCULAR VOLUME 88.8 fL (81.0-99.0); MEAN PLATELET VOLUME 7.5 fl (7.4-10.4); MONOCYTES % 14.3 % (2.0-8.0); NEUTROPHILS % 65.3 % (40.0-76.0); PLATELET 296 x1000/uL (130-400); RED BLOOD CELL COUNT 3.92 mill/uL (4.2-5.4); RED CELL DISTRIBUTION WIDTH 14.9 % (11.6-14.6)
[2021-03-13] MEDS: INSULIN LISPRO 100 UNITS/ML SUBCUT SCH ×4 (07:08→21:00)
[2021-03-13 07:16] LABS: CHLORIDE 114 mEq/L (98-107)
[2021-03-13 07:30] LABS: LDL CHOLESTEROL 50 mg/dL (5-100)
[2021-03-13 07:31] LABS: CREATINE KINASE 69 IU/L (26-192)
[2021-03-13 07:32] LABS: CREATINE KINASE MB FRACTION 2.3 ng/mL (0.5-3.6); HDL CHOLESTEROL 51 mg/dL (40-59)
[2021-03-13 07:35] LABS: PHOSPHORUS 3.5 mg/dL (2.5-4.9)
[2021-03-13 08:00] VITALS: BP 108/52
[2021-03-13] MEDS: ENOXAPARIN 30MG/0.3ML SYR SUBCUT SCH ×2 (10:03→21:50)
[2021-03-13] MEDS: METOPROLOL TARTRATE 25MG TABLET PO SCH ×2 (10:10→21:53)
[2021-03-13] MEDS: ASCORBIC ACID 500 MG TABLET PO SCH ×2 (10:10→21:48)
[2021-03-13] MEDS: ASPIRIN 325MG EC TABLET PO SCH (10:11)
[2021-03-13] MEDS: ZINC SULFATE 220 MG ( 50 ) CAPSULE PO SCH (10:11)
[2021-03-13] MEDS ORDERED: *PATIENT'S OWN MEDICATION STORAGE XX SCH (11:30)
[2021-03-13 12:00] VITALS: BP 112/61
[2021-03-13 16:00] VITALS: BP 117/65
[2021-03-13 16:44] LABS: CREATINE KINASE 64 IU/L (26-192)
[2021-03-13 16:49] LABS: CREATINE KINASE MB FRACTION 2.2 ng/mL (0.5-3.6)
[2021-03-13 20:00] VITALS: BP 124/63
[2021-03-13] MEDS: FAMOTIDINE 20MG TABLET PO SCH (21:48)
[2021-03-14] VITALS: BP 114/76
[2021-03-14 01:19] LABS: FOLIC ACID (FOLATE) SERUM 9.7 ng/mL (>5.38)
[2021-03-14 04:00] VITALS: BP 137/56
[2021-03-14] MEDS: INSULIN LISPRO 100 UNITS/ML SUBCUT SCH ×2 (05:56→12:40)
[2021-03-14] MEDS: BLOOD SUGAR DIAGNOSTIC STRIP TEST SCH ×2 (05:56→12:10)
[2021-03-14 08:00] VITALS: BP 118/77
[2021-03-14] MEDS: ASPIRIN 325MG EC TABLET PO SCH (09:04)
[2021-03-14] MEDS: METOPROLOL TARTRATE 25MG TABLET PO SCH (09:05)
[2021-03-14] MEDS: ASCORBIC ACID 500 MG TABLET PO SCH (09:05)
[2021-03-14] MEDS: ENOXAPARIN 30MG/0.3ML SYR SUBCUT SCH (09:06)
[2021-03-14] MEDS: ZINC SULFATE 220 MG ( 50 ) CAPSULE PO SCH (09:07)
[2021-03-14 12:00] VITALS: BP 114/64
[2021-03-14] MEDS ORDERED: NALOXONE HCL 0.4MG/ML VIAL IV PRN (13:00)
[2021-03-15] MEDS ORDERED: ENOXAPARIN 40MG/0.4ML SYR SUBCUT SCH (09:00)
== END 2021-03-14 14:42 | disposition left against medical advice (07) | DRG 291 ==
LOC: ER 16:49 → 8WST 19:35 → SUPCPDRO 20:32 → ENRESERV 21:50 → CANRESERV 21:50 → ENRESERV 21:57
PROVIDERS: ADMIT Internal Medicine; ATTEND Internal Medicine
DX: I11.0 Hypertensive heart disease with heart failure (principal); I50.33 Acute on chronic diastolic (congestive) heart failure; E44.1 Mild protein-calorie malnutrition; D63.8 Anemia in other chronic diseases classified elsewhere; E66.9 Obesity, unspecified; J45.909 Unspecified asthma, uncomplicated; Z20.822 Contact with and (suspected) exposure to COVID-19; Z53.29 Procedure and treatment not carried out because of patient's decision for other reasons; Z79.4 Long term (current) use of insulin; Z88.8 Allergy status to other drugs, medicaments and biological substances; Z79.899 Other long term (current) drug therapy; Z68.35 Body mass index [BMI] 35.0-35.9, adult; E11.65 Type 2 diabetes mellitus with hyperglycemia
CPT/HCPCS: 36415; 71045; 80053; 80061; 80305; 82550; 82553; 82607; 82728; 82746; 82962; 83036; 83540; 83550; 83735; 83880; 84100; 84484; 85025; 87426; 93005; 93306; 93970; 97162; 99285; J1650

== ENCOUNTER 2021-06-30 20:05 | Inpatient (IN) | payer MEDICARE, MEDICAID ==
[~2021-06-30] VITALS: Ht 165.1 cm; Wt 78.9 kg
[2021-06-30 20:00] VITALS: BP 121/56
[2021-06-30 20:05] VITALS: BP 121/56
[~2021-06-30 20:05] MED LIST changes: +CHOL2000; +FAMO-135 PO; +IBUP-2030 PO; +KETO5DRO80 EACHEYE; +LINA1TAB5 MT; +MECL-159 MT; +SPIR25TA6 MT
[2021-06-30] MEDS ORDERED: DEXTROSE 50% WATER 50ML SYRINGE IV PRN (21:30)
[2021-06-30] MEDS ORDERED: CLONIDINE 0.1MG TABLET PO PRN (21:30)
[2021-06-30] MEDS ORDERED: NON FORMULARY PATIENT HOME MED XX SCH ×3 (21:30)
[2021-06-30] MEDS ORDERED: LACTULOSE 20G/30ML UDC PO PRN (21:30)
[2021-06-30] MEDS ORDERED: DOCUSATE SODIUM 100MG CAPSULE PO PRN (21:30)
[2021-06-30] MEDS ORDERED: NALOXONE HCL 0.4 MG/ML 1ML VIAL IV PRN (22:45)
[2021-06-30] MEDS: AMLODIPINE 10MG TABLET PO SCH (23:00)
[2021-07-01] MEDS: HYDROCODONE/APAP 7.5/325MG 1 TAB TABLET PO PRN ×2 (02:54→16:26)
[2021-07-01 06:49] LABS: BASOPHILS % 0.3 % (0.0-2.0); EOSINOPHILS % 4.9 % (0.0-5.0); HEMATOCRIT. 25.4 % (36.0-48.0); HEMOGLOBIN. 8.6 g/dL (12.0-16.0); LYMPHOCYTES % 18.5 % (20.0-50.0); MEAN PLATELET VOLUME 7.4 fl (7.4-10.4); MONOCYTES % 12.9 % (2.0-8.0); NEUTROPHILS % 63.4 % (40.0-76.0); PLATELET 332 x1000/uL (130-400); RED BLOOD CELL COUNT 2.95 mill/uL (4.2-5.4)
[2021-07-01 06:55] LABS: CHLORIDE 110 mEq/L (98-107)
[2021-07-01] MEDS: BLOOD SUGAR DIAGNOSTIC STRIP TEST SCH ×4 (06:59→21:00)
[2021-07-01 08:00] VITALS: BP 90/51
[2021-07-01] MEDS: AMLODIPINE 10MG TABLET PO SCH (09:00)
[2021-07-01] MEDS: INSULIN LISPRO 100 UNITS/ML SUBCUT SCH ×4 (09:00→21:00)
[2021-07-01] MEDS: ENOXAPARIN 40MG/0.4ML SYR SUBCUT SCH (11:06)
[2021-07-01] MEDS: KETOROLAC 0.5% OP SCH ×2 (11:07→19:00)
[2021-07-01] MEDS: DORZOLAMIDE HCL 2% OP SCH ×3 (11:07→19:00)
[2021-07-01] MEDS: EYE OP SCH ×5 (11:07→19:00)
[2021-07-01] MEDS: ALPHAGAN P 0.1% EYE DROP OP SCH ×3 (11:08→19:00)
[2021-07-01] MEDS ORDERED: POTASSIUM CHLORIDE 20MEQ TABLET SR PO NR (13:15)
[2021-07-01] MEDS: LACTULOSE 20G/30ML UDC PO SCH ×2 (16:27→17:00)
[2021-07-01 20:00] VITALS: BP 122/66
[2021-07-02 01:46] VITALS: BP 110/56
[2021-07-02 05:49] LABS: CLARITY URINE CLEAR (CLEAR); COLOR URINE YELLOW (YELLOW); KETONES URINE NEGATIVE (NEGATIVE); LEUKOCYTE ESTERASE URINE NEGATIVE (NEGATIVE); NITRITE URINE NEGATIVE (NEGATIVE); OCCULT BLOOD URINE NEGATIVE (NEGATIVE); PH URINE 6.5 (4.5-8.0); PROTEIN URINE TRACE (NEGATIVE); SPECIFIC GRAVITY URINE 1.014 (1.005-1.030)
[2021-07-02] MEDS: BLOOD SUGAR DIAGNOSTIC STRIP TEST SCH ×4 (06:30→21:20)
[2021-07-02 06:33] LABS: BASOPHILS % 0.4 % (0.0-2.0); EOSINOPHILS % 3.7 % (0.0-5.0); HEMATOCRIT. 27.1 % (36.0-48.0); HEMOGLOBIN. 8.9 g/dL (12.0-16.0); LYMPHOCYTES % 17.3 % (20.0-50.0); MEAN CORPUSCULAR HEMOGLOBIN 28.5 pg (28.0-32.0); MEAN CORPUSCULAR VOLUME 86.4 fL (81.0-99.0); MEAN PLATELET VOLUME 7.5 fl (7.4-10.4); MONOCYTES % 13.4 % (2.0-8.0); NEUTROPHILS % 65.2 % (40.0-76.0); PLATELET 418 x1000/uL (130-400); RED BLOOD CELL COUNT 3.14 mill/uL (4.2-5.4); RED CELL DISTRIBUTION WIDTH 14.8 % (11.6-14.6)
[2021-07-02 07:30] LABS: CHLORIDE 110 mEq/L (98-107)
[2021-07-02 07:38] LABS: TOTAL IRON BINDING CAPACITY 199 ug/dL (250-450)
[2021-07-02 08:00] VITALS: BP 125/68
[2021-07-02] MEDS: INSULIN LISPRO 100 UNITS/ML SUBCUT SCH ×4 (09:00→21:00)
[2021-07-02] MEDS: DORZOLAMIDE HCL 2% OP SCH ×3 (09:56→17:20)
[2021-07-02] MEDS: KETOROLAC 0.5% OP SCH ×2 (09:56→17:20)
[2021-07-02] MEDS: ALPHAGAN P 0.1% EYE DROP OP SCH ×3 (09:56→17:20)
[2021-07-02] MEDS: EYE OP SCH ×5 (09:56→17:20)
[2021-07-02] MEDS: POLYETHYLENE GLYCOL 3350 (17GM) 1 DOSE PACK PO SCH (09:57)
[2021-07-02] MEDS: ONDANSETRON HCL 4MG/2ML INJ IV PRN (09:57)
[2021-07-02] MEDS: AMLODIPINE 10MG TABLET PO SCH (09:58)
[2021-07-02] MEDS: HYDROCODONE/APAP 7.5/325MG 1 TAB TABLET PO PRN ×2 (09:58→17:22)
[2021-07-02] MEDS: ENOXAPARIN 40MG/0.4ML SYR SUBCUT SCH (09:59)
[2021-07-02] MEDS ORDERED: POTASSIUM CHLORIDE 20MEQ TABLET SR PO NR ×2 (11:15→17:00)
[2021-07-02 20:00] VITALS: BP 107/54
[2021-07-03] MEDS: HYDROCODONE/APAP 7.5/325MG 1 TAB TABLET PO PRN ×3 (00:35→16:35)
[2021-07-03] MEDS: BLOOD SUGAR DIAGNOSTIC STRIP TEST SCH ×4 (06:31→21:00)
[2021-07-03 06:56] LABS: CHLORIDE 110 mEq/L (98-107)
[2021-07-03 08:00] VITALS: BP 106/40
[2021-07-03] MEDS: INSULIN LISPRO 100 UNITS/ML SUBCUT SCH ×4 (09:00→21:00)
[2021-07-03] MEDS: POLYETHYLENE GLYCOL 3350 (17GM) 1 DOSE PACK PO SCH (09:00)
[2021-07-03] MEDS: AMLODIPINE 10MG TABLET PO SCH (09:00)
[2021-07-03] MEDS: KETOROLAC 0.5% OP SCH ×2 (09:17→16:34)
[2021-07-03] MEDS: ALPHAGAN P 0.1% EYE DROP OP SCH ×3 (09:17→16:34)
[2021-07-03] MEDS: MAGNESIUM HYDROXIDE 400MG/5ML 30ML UDC PO PRN (09:17)
[2021-07-03] MEDS: DORZOLAMIDE HCL 2% OP SCH ×3 (09:17→16:34)
[2021-07-03] MEDS: EYE OP SCH ×5 (09:17→16:34)
[2021-07-03] MEDS: ENOXAPARIN 40MG/0.4ML SYR SUBCUT SCH (09:18)
[2021-07-03] MEDS: ONDANSETRON HCL 4MG/2ML INJ IV PRN (11:24)
[2021-07-03] MEDS ORDERED: POTASSIUM CHLORIDE 20MEQ TABLET SR PO NR (15:00)
[2021-07-03 20:00] VITALS: BP 95/48
[2021-07-03 20:09] VITALS: BP 129/69
[2021-07-04] MEDS: HYDROCODONE/APAP 7.5/325MG 1 TAB TABLET PO PRN ×2 (06:21→17:10)
[2021-07-04] MEDS: BLOOD SUGAR DIAGNOSTIC STRIP TEST SCH ×4 (06:24→21:00)
[2021-07-04] MEDS: INSULIN LISPRO 100 UNITS/ML SUBCUT SCH ×4 (07:43→21:00)
[2021-07-04 08:00] VITALS: BP 102/66
[2021-07-04] MEDS: AMLODIPINE 10MG TABLET PO SCH (09:00)
[2021-07-04] MEDS: ENOXAPARIN 40MG/0.4ML SYR SUBCUT SCH (10:01)
[2021-07-04] MEDS: ALPHAGAN P 0.1% EYE DROP OP SCH ×3 (10:03→17:11)
[2021-07-04] MEDS: EYE OP SCH ×5 (10:03→17:11)
[2021-07-04] MEDS: KETOROLAC 0.5% OP SCH ×2 (10:03→17:11)
[2021-07-04] MEDS: DORZOLAMIDE HCL 2% OP SCH ×3 (10:03→17:11)
[2021-07-04] MEDS: POLYETHYLENE GLYCOL 3350 (17GM) 1 DOSE PACK PO SCH (10:04)
[2021-07-04] MEDS: LACTULOSE 20G/30ML UDC PO SCH ×3 (10:04→17:00)
[2021-07-04] MEDS ORDERED: BISACODYL 10MG SUPP PR PRN (12:30)
[2021-07-04] MEDS: DOCUSATE SODIUM 100MG CAPSULE PO SCH (17:07)
[2021-07-04 20:00] VITALS: BP 107/53
[2021-07-04] MEDS: IRON SUCROSE COMPLEX 100 MG in SODIUM CHLORIDE 0.9% 100 ML IV SCH (20:26)
[2021-07-05] MEDS: BLOOD SUGAR DIAGNOSTIC STRIP TEST SCH ×4 (06:20→21:00)
[2021-07-05 07:01] LABS: BASOPHILS % 0.7 % (0.0-2.0); EOSINOPHILS % 3.9 % (0.0-5.0); HEMATOCRIT. 28.2 % (36.0-48.0); HEMOGLOBIN. 9.1 g/dL (12.0-16.0); LYMPHOCYTES % 20.4 % (20.0-50.0); MEAN CORPUSCULAR HEMOGLOBIN 27.8 pg (28.0-32.0); MEAN CORPUSCULAR VOLUME 86.8 fL (81.0-99.0); MEAN PLATELET VOLUME 7.2 fl (7.4-10.4); MONOCYTES % 14.6 % (2.0-8.0); NEUTROPHILS % 60.4 % (40.0-76.0); PLATELET 490 x1000/uL (130-400); RED BLOOD CELL COUNT 3.25 mill/uL (4.2-5.4); RED CELL DISTRIBUTION WIDTH 15.3 % (11.6-14.6)
[2021-07-05 07:04] LABS: CHLORIDE 109 mEq/L (98-107)
[2021-07-05 09:00] VITALS: BP 93/45
[2021-07-05] MEDS: INSULIN LISPRO 100 UNITS/ML SUBCUT SCH ×4 (09:00→21:00)
[2021-07-05] MEDS: AMLODIPINE 10MG TABLET PO SCH ×2 (09:00→10:06)
[2021-07-05] MEDS: DOCUSATE SODIUM 100MG CAPSULE PO SCH ×2 (10:06→17:25)
[2021-07-05] MEDS: ENOXAPARIN 40MG/0.4ML SYR SUBCUT SCH (10:06)
[2021-07-05] MEDS: POLYETHYLENE GLYCOL 3350 (17GM) 1 DOSE PACK PO SCH (10:07)
[2021-07-05] MEDS: DORZOLAMIDE HCL 2% OP SCH ×3 (10:08→17:25)
[2021-07-05] MEDS: EYE OP SCH ×5 (10:08→17:25)
[2021-07-05] MEDS: KETOROLAC 0.5% OP SCH ×2 (10:09→17:25)
[2021-07-05] MEDS: ALPHAGAN P 0.1% EYE DROP OP SCH ×3 (10:09→17:25)
[2021-07-05] MEDS: BISACODYL 10MG SUPP PR SCH (10:20)
[2021-07-05] MEDS: LACTULOSE 20G/30ML UDC PO SCH ×2 (15:07→22:00)
[2021-07-05] MEDS: MAGNESIUM/ALUMINUM HYDROXIDE/SIMETHICONE 30ML UDC PO PRN (17:25)
[2021-07-05 20:00] VITALS: BP 104/58
[2021-07-05] MEDS: IRON SUCROSE COMPLEX 100 MG in SODIUM CHLORIDE 0.9% 100 ML IV SCH (20:52)
[2021-07-06] MEDS: LACTULOSE 20G/30ML UDC PO SCH ×3 (05:18→13:55)
[2021-07-06] MEDS: BLOOD SUGAR DIAGNOSTIC STRIP TEST SCH ×4 (05:24→20:31)
[2021-07-06] MEDS ORDERED: HYDROCODONE/APAP 7.5/325MG 1 TAB TABLET PO PRN (05:45)
[2021-07-06] MEDS: INSULIN LISPRO 100 UNITS/ML SUBCUT SCH ×4 (06:23→20:30)
[2021-07-06 08:00] VITALS: BP 115/60
[2021-07-06] MEDS: AMLODIPINE 10MG TABLET PO SCH (08:25)
[2021-07-06] MEDS: KETOROLAC 0.5% OP SCH ×2 (08:26→17:06)
[2021-07-06] MEDS: ENOXAPARIN 40MG/0.4ML SYR SUBCUT SCH (08:26)
[2021-07-06] MEDS: POLYETHYLENE GLYCOL 3350 (17GM) 1 DOSE PACK PO SCH (08:26)
[2021-07-06] MEDS: EYE OP SCH ×5 (08:26→17:06)
[2021-07-06] MEDS: DOCUSATE SODIUM 100MG CAPSULE PO SCH ×2 (08:26→17:01)
[2021-07-06] MEDS: BISACODYL 10MG SUPP PR SCH (08:26)
[2021-07-06] MEDS: ALPHAGAN P 0.1% EYE DROP OP SCH ×3 (08:27→17:06)
[2021-07-06] MEDS: DORZOLAMIDE HCL 2% OP SCH ×3 (08:27→17:06)
[2021-07-06] MEDS: ACETAMINOPHEN 325MG TABLET PO PRN (11:50)
[2021-07-06] MEDS: HYDROCODONE/APAP 7.5/325MG 1 TAB TABLET PO PRN ×2 (17:01→22:49)
[2021-07-06 19:07] LABS: 25-HYDROXY VITAMIN D3 42 ng/mL (.)
[2021-07-06 20:00] VITALS: BP 110/60
[2021-07-06] MEDS: IRON SUCROSE COMPLEX 100 MG in SODIUM CHLORIDE 0.9% 100 ML IV SCH (20:30)
[2021-07-07] MEDS: INSULIN LISPRO 100 UNITS/ML SUBCUT SCH ×4 (05:22→20:55)
[2021-07-07] MEDS: BLOOD SUGAR DIAGNOSTIC STRIP TEST SCH ×4 (05:22→20:55)
[2021-07-07 08:00] VITALS: BP 109/50
[2021-07-07] MEDS: AMLODIPINE 10MG TABLET PO SCH (09:00)
[2021-07-07] MEDS: POLYETHYLENE GLYCOL 3350 (17GM) 1 DOSE PACK PO SCH (09:00)
[2021-07-07] MEDS: ALPHAGAN P 0.1% EYE DROP OP SCH ×3 (09:50→16:57)
[2021-07-07] MEDS: KETOROLAC 0.5% OP SCH ×2 (09:50→16:56)
[2021-07-07] MEDS: DORZOLAMIDE HCL 2% OP SCH ×3 (09:50→16:56)
[2021-07-07] MEDS: ENOXAPARIN 40MG/0.4ML SYR SUBCUT SCH (09:50)
[2021-07-07] MEDS: EYE OP SCH ×5 (09:50→16:56)
[2021-07-07] MEDS: BISACODYL 10MG SUPP PR SCH (09:51)
[2021-07-07] MEDS: HYDROCODONE/APAP 7.5/325MG 1 TAB TABLET PO PRN (09:51)
[2021-07-07] MEDS: DOCUSATE SODIUM 100MG CAPSULE PO SCH ×2 (09:52→16:57)
[2021-07-07] MEDS: ERGOCALCIFEROL 50000UNITS CAPSULE PO SCH (13:29)
[2021-07-07 20:00] VITALS: BP 118/65
[2021-07-07] MEDS: IRON SUCROSE COMPLEX 100 MG in SODIUM CHLORIDE 0.9% 100 ML IV SCH (20:05)
[2021-07-07] MEDS: ONDANSETRON HCL 4MG/2ML INJ IV PRN (20:05)
[2021-07-08] MEDS: BLOOD SUGAR DIAGNOSTIC STRIP TEST SCH ×4 (06:11→21:07)
[2021-07-08] MEDS: INSULIN LISPRO 100 UNITS/ML SUBCUT SCH ×4 (06:11→21:00)
[2021-07-08] MEDS: HYDROCODONE/APAP 7.5/325MG 1 TAB TABLET PO PRN (06:45)
[2021-07-08 07:34] LABS: CHLORIDE 111 mEq/L (98-107)
[2021-07-08 07:42] LABS: BASOPHILS % 0.8 % (0.0-2.0); EOSINOPHILS % 3.3 % (0.0-5.0); HEMATOCRIT. 25.8 % (36.0-48.0); HEMOGLOBIN. 8.6 g/dL (12.0-16.0); LYMPHOCYTES % 17.2 % (20.0-50.0); MEAN CORPUSCULAR HEMOGLOBIN 28.7 pg (28.0-32.0); MEAN CORPUSCULAR VOLUME 85.9 fL (81.0-99.0); MEAN PLATELET VOLUME 7.4 fl (7.4-10.4); MONOCYTES % 13.3 % (2.0-8.0); NEUTROPHILS % 65.4 % (40.0-76.0); PLATELET 459 x1000/uL (130-400); RED BLOOD CELL COUNT 3.01 mill/uL (4.2-5.4); RED CELL DISTRIBUTION WIDTH 15.5 % (11.6-14.6)
[2021-07-08] MEDS: AMLODIPINE 10MG TABLET PO SCH (09:00)
[2021-07-08 09:22] VITALS: BP 106/55
[2021-07-08] MEDS: MAGNESIUM HYDROXIDE 400MG/5ML 30ML UDC PO PRN (09:24)
[2021-07-08] MEDS: BISACODYL 10MG SUPP PR SCH ×2 (09:25→09:40)
[2021-07-08] MEDS: DOCUSATE SODIUM 100MG CAPSULE PO SCH ×2 (09:25→17:57)
[2021-07-08] MEDS: ENOXAPARIN 40MG/0.4ML SYR SUBCUT SCH (09:26)
[2021-07-08] MEDS: POLYETHYLENE GLYCOL 3350 (17GM) 1 DOSE PACK PO SCH (09:26)
[2021-07-08] MEDS: ALPHAGAN P 0.1% EYE DROP OP SCH ×3 (09:29→17:00)
[2021-07-08] MEDS: EYE OP SCH ×5 (09:29→17:00)
[2021-07-08] MEDS: DORZOLAMIDE HCL 2% OP SCH ×3 (09:29→17:00)
[2021-07-08] MEDS: KETOROLAC 0.5% OP SCH ×2 (09:30→17:00)
[2021-07-08] MEDS: ACETAMINOPHEN 325MG TABLET PO PRN (12:07)
[2021-07-08] MEDS ORDERED: POTASSIUM CHLORIDE 20MEQ TABLET SR PO NR (12:30)
[2021-07-08] MEDS: IRON SUCROSE COMPLEX 100 MG in SODIUM CHLORIDE 0.9% 100 ML IV SCH (21:07)
[2021-07-08 21:20] VITALS: BP 119/52
[2021-07-09 03:55] LABS: CLARITY URINE CLOUDY (CLEAR); COLOR URINE YELLOW (YELLOW); KETONES URINE NEGATIVE (NEGATIVE); LEUKOCYTE ESTERASE URINE 3+ (NEGATIVE); NITRITE URINE NEGATIVE (NEGATIVE); OCCULT BLOOD URINE 1+ (NEGATIVE); PH URINE 6.5 (4.5-8.0); PROTEIN URINE NEGATIVE (NEGATIVE); SPECIFIC GRAVITY URINE 1.008 (1.005-1.030); UROBILINOGEN URINE 0.2 E.U./dL (0.2-1.0)
[2021-07-09 07:27] LABS: CHLORIDE 110 mEq/L (98-107)
[2021-07-09 08:00] VITALS: BP 114/51
[2021-07-09] MEDS: INSULIN LISPRO 100 UNITS/ML SUBCUT SCH ×4 (09:00→21:00)
[2021-07-09] MEDS: DORZOLAMIDE HCL 2% OP SCH ×3 (09:44→17:31)
[2021-07-09] MEDS: POLYETHYLENE GLYCOL 3350 (17GM) 1 DOSE PACK PO SCH (09:44)
[2021-07-09] MEDS: ENOXAPARIN 40MG/0.4ML SYR SUBCUT SCH (09:44)
[2021-07-09] MEDS: EYE OP SCH ×5 (09:44→17:31)
[2021-07-09] MEDS: BISACODYL 10MG SUPP PR SCH (09:45)
[2021-07-09] MEDS: KETOROLAC 0.5% OP SCH ×2 (09:45→17:31)
[2021-07-09] MEDS: DOCUSATE SODIUM 100MG CAPSULE PO SCH ×2 (09:45→17:31)
[2021-07-09] MEDS: HYDROCODONE/APAP 7.5/325MG 1 TAB TABLET PO PRN (09:45)
[2021-07-09] MEDS: ALPHAGAN P 0.1% EYE DROP OP SCH ×3 (09:45→17:31)
[2021-07-09] MEDS: AMLODIPINE 10MG TABLET PO SCH (09:46)
[2021-07-09] MEDS: BLOOD SUGAR DIAGNOSTIC STRIP TEST SCH ×3 (12:08→21:00)
[2021-07-09] MEDS: NITROFURANTOIN 100MG M/M CAPSULE PO SCH ×2 (15:30→21:44)
[2021-07-09 20:00] VITALS: BP 108/48
[2021-07-10] MEDS: HYDROCODONE/APAP 7.5/325MG 1 TAB TABLET PO PRN ×2 (06:19→17:17)
[2021-07-10 06:43] LABS: EOSINOPHILS % 4.3 % (0.0-5.0); HEMATOCRIT. 27.1 % (36.0-48.0); LYMPHOCYTES % 21.8 % (20.0-50.0); MEAN CORPUSCULAR HEMOGLOBIN 29.1 pg (28.0-32.0); MEAN CORPUSCULAR VOLUME 86.9 fL (81.0-99.0); MEAN PLATELET VOLUME 7.6 fl (7.4-10.4); MONOCYTES % 14.2 % (2.0-8.0); NEUTROPHILS % 58.7 % (40.0-76.0); PLATELET 450 x1000/uL (130-400); RED BLOOD CELL COUNT 3.11 mill/uL (4.2-5.4); RED CELL DISTRIBUTION WIDTH 15.6 % (11.6-14.6)
[2021-07-10 08:00] VITALS: BP 100/51
[2021-07-10 08:02] LABS: CHLORIDE 109 mEq/L (98-107)
[2021-07-10] MEDS: AMLODIPINE 10MG TABLET PO SCH (09:00)
[2021-07-10] MEDS: INSULIN LISPRO 100 UNITS/ML SUBCUT SCH ×4 (09:00→20:48)
[2021-07-10] MEDS: BISACODYL 10MG SUPP PR SCH (09:00)
[2021-07-10] MEDS: POLYETHYLENE GLYCOL 3350 (17GM) 1 DOSE PACK PO SCH ×2 (09:00→10:23)
[2021-07-10] MEDS: KETOROLAC 0.5% OP SCH ×2 (10:23→17:08)
[2021-07-10] MEDS: ALPHAGAN P 0.1% EYE DROP OP SCH ×3 (10:23→17:08)
[2021-07-10] MEDS: EYE OP SCH ×5 (10:23→17:08)
[2021-07-10] MEDS: NITROFURANTOIN 100MG M/M CAPSULE PO SCH ×2 (10:23→20:09)
[2021-07-10] MEDS: DOCUSATE SODIUM 100MG CAPSULE PO SCH ×2 (10:23→17:08)
[2021-07-10] MEDS: DORZOLAMIDE HCL 2% OP SCH ×3 (10:23→17:08)
[2021-07-10] MEDS: ENOXAPARIN 40MG/0.4ML SYR SUBCUT SCH (10:24)
[2021-07-10] MEDS: BLOOD SUGAR DIAGNOSTIC STRIP TEST SCH ×3 (11:15→20:47)
[2021-07-10] MEDS ORDERED: POTASSIUM CHLORIDE 20MEQ TABLET SR PO NR ×2 (12:30→20:00)
[2021-07-10 20:00] VITALS: BP 98/45
[2021-07-10] MEDS: MAGNESIUM/ALUMINUM HYDROXIDE/SIMETHICONE 30ML UDC PO PRN (20:12)
[2021-07-10 22:50] VITALS: BP 120/53
[2021-07-11] MEDS: BLOOD SUGAR DIAGNOSTIC STRIP TEST SCH ×4 (06:26→21:09)
[2021-07-11] MEDS: INSULIN LISPRO 100 UNITS/ML SUBCUT SCH ×4 (06:26→22:09)
[2021-07-11] MEDS: ONDANSETRON HCL 4MG/2ML INJ IV PRN (07:15)
[2021-07-11 08:00] VITALS: BP 116/51
[2021-07-11] MEDS: NITROFURANTOIN 100MG M/M CAPSULE PO SCH ×2 (08:47→21:00)
[2021-07-11] MEDS: ALPHAGAN P 0.1% EYE DROP OP SCH ×3 (08:47→17:37)
[2021-07-11] MEDS: DORZOLAMIDE HCL 2% OP SCH ×3 (08:47→17:38)
[2021-07-11] MEDS: EYE OP SCH ×5 (08:47→17:38)
[2021-07-11] MEDS: KETOROLAC 0.5% OP SCH ×2 (08:47→17:37)
[2021-07-11] MEDS: DOCUSATE SODIUM 100MG CAPSULE PO SCH ×2 (08:47→16:59)
[2021-07-11] MEDS: AMLODIPINE 10MG TABLET PO SCH (08:47)
[2021-07-11] MEDS: HYDROCODONE/APAP 7.5/325MG 1 TAB TABLET PO PRN (08:48)
[2021-07-11] MEDS: POLYETHYLENE GLYCOL 3350 (17GM) 1 DOSE PACK PO SCH (08:49)
[2021-07-11] MEDS: ENOXAPARIN 40MG/0.4ML SYR SUBCUT SCH (08:59)
[2021-07-11] MEDS: BISACODYL 10MG SUPP PR SCH (09:00)
[2021-07-11 09:27] LABS: CHLORIDE 108 mEq/L (98-107)
[2021-07-11] MEDS ORDERED: NALOXONE HCL 0.4MG/ML VIAL IV PRN (14:15)
[2021-07-11 20:00] VITALS: BP 114/60
[2021-07-11] MEDS: MAGNESIUM/ALUMINUM HYDROXIDE/SIMETHICONE 30ML UDC PO PRN (22:00)
[2021-07-12] MEDS: INSULIN LISPRO 100 UNITS/ML SUBCUT SCH ×4 (06:44→21:00)
[2021-07-12] MEDS: BLOOD SUGAR DIAGNOSTIC STRIP TEST SCH ×4 (06:44→21:00)
[2021-07-12 08:00] VITALS: BP 105/48
[2021-07-12] MEDS: AMLODIPINE 10MG TABLET PO SCH (09:00)
[2021-07-12] MEDS: SULFAMETHOXAZOLE/TRIMETHOPRIM 800/160MG TABLET PO SCH ×2 (10:18→22:05)
[2021-07-12] MEDS: BISACODYL 10MG SUPP PR SCH (10:18)
[2021-07-12] MEDS: DOCUSATE SODIUM 100MG CAPSULE PO SCH ×2 (10:19→17:00)
[2021-07-12] MEDS: ENOXAPARIN 40MG/0.4ML SYR SUBCUT SCH (10:20)
[2021-07-12] MEDS: POLYETHYLENE GLYCOL 3350 (17GM) 1 DOSE PACK PO SCH (10:20)
[2021-07-12] MEDS: KETOROLAC 0.5% OP SCH ×2 (10:25→17:28)
[2021-07-12] MEDS: ALPHAGAN P 0.1% EYE DROP OP SCH ×3 (10:25→17:28)
[2021-07-12] MEDS: DORZOLAMIDE HCL 2% OP SCH ×3 (10:25→17:28)
[2021-07-12] MEDS: EYE OP SCH ×5 (10:25→17:28)
[2021-07-12] MEDS: HYDROCODONE/APAP 7.5/325MG 1 TAB TABLET PO PRN (11:10)
[2021-07-12 20:00] VITALS: BP 105/47
[2021-07-13] MEDS: BLOOD SUGAR DIAGNOSTIC STRIP TEST SCH ×4 (06:17→21:18)
[2021-07-13] MEDS: INSULIN LISPRO 100 UNITS/ML SUBCUT SCH ×4 (06:18→21:00)
[2021-07-13] MEDS: ACETAMINOPHEN 325MG TABLET PO PRN ×4 (06:34→14:54)
[2021-07-13 07:54] VITALS: BP 111/49
[2021-07-13] MEDS: ENOXAPARIN 40MG/0.4ML SYR SUBCUT SCH (08:39)
[2021-07-13] MEDS: EYE OP SCH ×5 (08:39→18:06)
[2021-07-13] MEDS: ALPHAGAN P 0.1% EYE DROP OP SCH ×3 (08:39→18:05)
[2021-07-13] MEDS: DORZOLAMIDE HCL 2% OP SCH ×3 (08:39→18:06)
[2021-07-13] MEDS: KETOROLAC 0.5% OP SCH ×2 (08:39→18:05)
[2021-07-13] MEDS: SULFAMETHOXAZOLE/TRIMETHOPRIM 800/160MG TABLET PO SCH ×2 (08:40→21:19)
[2021-07-13] MEDS: AMLODIPINE 10MG TABLET PO SCH (08:40)
[2021-07-13] MEDS: BISACODYL 10MG SUPP PR SCH (08:40)
[2021-07-13] MEDS: DOCUSATE SODIUM 100MG CAPSULE PO SCH ×2 (08:40→18:05)
[2021-07-13] MEDS: POLYETHYLENE GLYCOL 3350 (17GM) 1 DOSE PACK PO SCH (08:41)
[2021-07-13 19:24] VITALS: BP 113/59
[2021-07-14] MEDS: INSULIN LISPRO 100 UNITS/ML SUBCUT SCH ×4 (07:28→21:00)
[2021-07-14] MEDS: BLOOD SUGAR DIAGNOSTIC STRIP TEST SCH ×4 (07:28→21:23)
[2021-07-14 08:00] VITALS: BP 110/55
[2021-07-14] MEDS: BISACODYL 10MG SUPP PR SCH (09:00)
[2021-07-14] MEDS: POLYETHYLENE GLYCOL 3350 (17GM) 1 DOSE PACK PO SCH (09:01)
[2021-07-14] MEDS: DOCUSATE SODIUM 100MG CAPSULE PO SCH ×2 (09:01→17:23)
[2021-07-14] MEDS: ERGOCALCIFEROL 50000UNITS CAPSULE PO SCH (09:02)
[2021-07-14] MEDS: AMLODIPINE 10MG TABLET PO SCH (09:02)
[2021-07-14] MEDS: SULFAMETHOXAZOLE/TRIMETHOPRIM 800/160MG TABLET PO SCH ×2 (09:02→21:23)
[2021-07-14] MEDS: ENOXAPARIN 40MG/0.4ML SYR SUBCUT SCH (09:03)
[2021-07-14] MEDS: MAGNESIUM/ALUMINUM HYDROXIDE/SIMETHICONE 30ML UDC PO PRN (09:03)
[2021-07-14] MEDS: HYDROCODONE/APAP 7.5/325MG 1 TAB TABLET PO PRN (09:04)
[2021-07-14] MEDS: KETOROLAC 0.5% OP SCH (14:31)
[2021-07-14] MEDS: EYE OP SCH (14:31)
[2021-07-14] MEDS: ACETAMINOPHEN 325MG TABLET PO PRN (17:24)
[2021-07-14 20:00] VITALS: BP 129/67
[2021-07-15] MEDS: BLOOD SUGAR DIAGNOSTIC STRIP TEST SCH ×4 (06:13→21:00)
[2021-07-15] MEDS: ACETAMINOPHEN 325MG TABLET PO PRN ×3 (06:16→16:18)
[2021-07-15] MEDS: INSULIN LISPRO 100 UNITS/ML SUBCUT SCH ×4 (06:49→21:00)
[2021-07-15 08:00] VITALS: BP 108/50
[2021-07-15] MEDS: EYE OP SCH ×9 (09:00→18:28)
[2021-07-15] MEDS: AMLODIPINE 10MG TABLET PO SCH (09:00)
[2021-07-15] MEDS: DORZOLAMIDE HCL 2% OP SCH ×6 (09:00→18:28)
[2021-07-15] MEDS: ALPHAGAN P 0.1% EYE DROP OP SCH ×6 (09:00→18:28)
[2021-07-15] MEDS: SULFAMETHOXAZOLE/TRIMETHOPRIM 800/160MG TABLET PO SCH (09:00)
[2021-07-15] MEDS: BISACODYL 10MG SUPP PR SCH (09:00)
[2021-07-15] MEDS: POLYETHYLENE GLYCOL 3350 (17GM) 1 DOSE PACK PO SCH (11:16)
[2021-07-15] MEDS: DOCUSATE SODIUM 100MG CAPSULE PO SCH ×2 (11:16→17:29)
[2021-07-15] MEDS: ENOXAPARIN 40MG/0.4ML SYR SUBCUT SCH (11:18)
[2021-07-15] MEDS: KETOROLAC 0.5% OP SCH ×3 (11:44→18:28)
[2021-07-15] MEDS ORDERED: SULFAMETHOXAZOLE/TRIMETHOPRIM 800/160MG TABLET PO NR (13:41)
[2021-07-15 20:00] VITALS: BP 95/41
[2021-07-15] MEDS ORDERED: HYDROCODONE/APAP 7.5/325MG 1 TAB TABLET PO PRN (20:00)
[2021-07-15] MEDS: HYDROCODONE/APAP 7.5/325MG 1 TAB TABLET PO PRN (20:27)
[2021-07-16] MEDS: BLOOD SUGAR DIAGNOSTIC STRIP TEST SCH ×4 (06:18→20:33)
[2021-07-16] MEDS: INSULIN LISPRO 100 UNITS/ML SUBCUT SCH ×4 (06:19→20:51)
[2021-07-16 07:50] LABS: BASOPHILS % 1.5 % (0.0-2.0); EOSINOPHILS % 6.7 % (0.0-5.0); HEMATOCRIT. 28.6 % (36.0-48.0); HEMOGLOBIN. 9.4 g/dL (12.0-16.0); MEAN CORPUSCULAR HEMOGLOBIN 28.9 pg (28.0-32.0); MEAN CORPUSCULAR VOLUME 87.8 fL (81.0-99.0); MEAN PLATELET VOLUME 7.3 fl (7.4-10.4); MONOCYTES % 13.3 % (2.0-8.0); NEUTROPHILS % 47.5 % (40.0-76.0); PLATELET 347 x1000/uL (130-400); RED BLOOD CELL COUNT 3.26 mill/uL (4.2-5.4); RED CELL DISTRIBUTION WIDTH 15.4 % (11.6-14.6)
[2021-07-16 07:55] LABS: CHLORIDE 107 mEq/L (98-107)
[2021-07-16] MEDS: BISACODYL 10MG SUPP PR SCH (09:00)
[2021-07-16] MEDS: AMLODIPINE 10MG TABLET PO SCH (09:00)
[2021-07-16] MEDS: POLYETHYLENE GLYCOL 3350 (17GM) 1 DOSE PACK PO SCH (09:34)
[2021-07-16] MEDS: DOCUSATE SODIUM 100MG CAPSULE PO SCH ×2 (09:34→18:21)
[2021-07-16] MEDS: ENOXAPARIN 40MG/0.4ML SYR SUBCUT SCH (09:36)
[2021-07-16] MEDS: KETOROLAC 0.5% OP SCH ×2 (09:48→19:06)
[2021-07-16] MEDS: ALPHAGAN P 0.1% EYE DROP OP SCH ×3 (09:48→19:07)
[2021-07-16] MEDS: EYE OP SCH ×5 (09:48→19:06)
[2021-07-16] MEDS: DORZOLAMIDE HCL 2% OP SCH ×3 (09:49→19:06)
[2021-07-16] MEDS: MAGNESIUM/ALUMINUM HYDROXIDE/SIMETHICONE 30ML UDC PO PRN (14:39)
[2021-07-16] MEDS ORDERED: NALOXONE HCL 0.4MG/ML VIAL IV PRN (17:45)
[2021-07-16 20:00] VITALS: BP 108/50
[2021-07-17] MEDS: HYDROCODONE/APAP 7.5/325MG 1 TAB TABLET PO PRN (04:14)
[2021-07-17] MEDS: BLOOD SUGAR DIAGNOSTIC STRIP TEST SCH ×2 (06:32→12:06)
[2021-07-17] MEDS: INSULIN LISPRO 100 UNITS/ML SUBCUT SCH ×2 (06:33→12:07)
[2021-07-17 08:00] VITALS: BP 114/65
[2021-07-17] MEDS: POLYETHYLENE GLYCOL 3350 (17GM) 1 DOSE PACK PO SCH (09:00)
[2021-07-17] MEDS: BISACODYL 10MG SUPP PR SCH (09:00)
[2021-07-17] MEDS: AMLODIPINE 10MG TABLET PO SCH (09:06)
[2021-07-17] MEDS: DOCUSATE SODIUM 100MG CAPSULE PO SCH (09:06)
[2021-07-17] MEDS: ENOXAPARIN 40MG/0.4ML SYR SUBCUT SCH (09:07)
[2021-07-17] MEDS: ALPHAGAN P 0.1% EYE DROP OP SCH ×2 (09:08→13:11)
[2021-07-17] MEDS: KETOROLAC 0.5% OP SCH (09:08)
[2021-07-17] MEDS: EYE OP SCH ×3 (09:08→13:11)
[2021-07-17] MEDS: DORZOLAMIDE HCL 2% OP SCH ×2 (09:08→13:11)
[2021-07-17 12:16] VITALS: BP 125/53
[2021-07-17 12:22] VITALS: BP 125/53
== END 2021-07-17 16:10 | disposition home health service (06) | DRG 70 ==
PROVIDERS: ADMIT Physical Medicine & Rehabilitation Spinal Cord Injury Medicine; ATTEND Hospitalist
DX: G93.41 Metabolic encephalopathy (principal); S72.001A Fracture of unspecified part of neck of right femur, initial encounter for closed fracture; I50.21 Acute systolic (congestive) heart failure; N39.0 Urinary tract infection, site not specified; E11.9 Type 2 diabetes mellitus without complications; I11.0 Hypertensive heart disease with heart failure; D50.9 Iron deficiency anemia, unspecified; R13.10 Dysphagia, unspecified; E87.6 Hypokalemia; M79.609 Pain in unspecified limb; R53.81 Other malaise; E55.9 Vitamin D deficiency, unspecified; B96.1 Klebsiella pneumoniae [K. pneumoniae] as the cause of diseases classified elsewhere; E78.5 Hyperlipidemia, unspecified; W01.0XXA Fall on same level from slipping, tripping and stumbling without subsequent striking against object, initial encounter; Y93.01 Activity, walking, marching and hiking; Z96.641 Presence of right artificial hip joint; F03.90 Unspecified dementia, unspecified severity, without behavioral disturbance, psychotic disturbance, mood disturbance, and anxiety; D72.829 Elevated white blood cell count, unspecified; J44.9 Chronic obstructive pulmonary disease, unspecified; R26.9 Unspecified abnormalities of gait and mobility; Z86.718 Personal history of other venous thrombosis and embolism; Z95.828 Presence of other vascular implants and grafts; Z82.49 Family history of ischemic heart disease and other diseases of the circulatory system; Z90.710 Acquired absence of both cervix and uterus; Z88.8 Allergy status to other drugs, medicaments and biological substances; Y92.89 Other specified places as the place of occurrence of the external cause; Y99.8 Other external cause status; I25.2 Old myocardial infarction; H54.7 Unspecified visual loss
CPT/HCPCS: 36415; 80048; 80053; 81003; 82140; 82306; 82607; 82728; 82746; 82962; 83540; 83550; 83735; 84134; 84443; 85025; 87077; 87186; 92523; 92610; 93970; 97110; 97116; 97162; 97166; 97530; 97535; 97542; A6261; C1893; J1650; J1815; J2405; J7040; J7050

== ENCOUNTER 2021-09-29 13:47 | Emergency (ER) | payer MEDICARE, MEDICAID ==
[~2021-09-29] VITALS: Ht 175.3 cm; Wt 91.0 kg
[2021-09-29 13:57] VITALS: BP 116/62
== END 2021-09-29 21:38 | disposition left against medical advice (07) ==
LOC: ER 13:47
DX: Z53.21 Procedure and treatment not carried out due to patient leaving prior to being seen by health care provider (principal)

== ENCOUNTER 2022-01-03 04:34 | Inpatient (IN) | payer MEDICARE, MEDICAID ==
[~2022-01-03] VITALS: Ht 167.6 cm; Wt 79.4 kg
[2022-01-03] MEDS ORDERED: ONDANSETRON HCL 4MG/2ML INJ IV ONE (06:00)
[2022-01-03] MEDS ORDERED: MORPHINE SULFATE 2 MG/ML CPJ (NOT FOR IM USE) IV ONE (06:00)
[2022-01-03 06:04] LABS: BASOPHILS % 0.5 % (0.0-2.0); EOSINOPHILS % 4.7 % (0.0-5.0); HEMATOCRIT. 38.1 % (36.0-48.0); HEMOGLOBIN. 12.2 g/dL (12.0-16.0); MEAN CORPUSCULAR HEMOGLOBIN 27.3 pg (28.0-32.0); MEAN CORPUSCULAR VOLUME 85.3 fL (81.0-99.0); MEAN PLATELET VOLUME 8.5 fl (7.4-10.4); MONOCYTES % 10.4 % (2.0-8.0); NEUTROPHILS % 67.4 % (40.0-76.0); PLATELET 247 x1000/uL (130-400); RED BLOOD CELL COUNT 4.46 mill/uL (4.2-5.4); RED CELL DISTRIBUTION WIDTH 16.5 % (11.6-14.6)
[2022-01-03 06:06] LABS: CHLORIDE 107 mEq/L (98-107)
[2022-01-03] MEDS ORDERED: ONDANSETRON HCL 4MG/2ML INJ IV PRN (12:15)
[2022-01-03] MEDS ORDERED: IPRATROPIUM/ALBUTEROL 0.5-3(2.5)MG/3ML NEB HHN PRN (12:15)
[2022-01-03] MEDS ORDERED: MORPHINE SULFATE 2 MG/ML CPJ (NOT FOR IM USE) IV PRN (12:15)
[2022-01-03] MEDS ORDERED: CLONIDINE 0.1MG TABLET PO PRN (12:15)
[2022-01-03] MEDS ORDERED: DOCUSATE SODIUM 100MG CAPSULE PO PRN (12:15)
[2022-01-03] MEDS ORDERED: ACETAMINOPHEN 325MG TABLET PO PRN ×2 (12:15)
[2022-01-03] MEDS: HYDROCODONE/ACETAMINOPHEN 5/325MG TABLET PO PRN (12:39)
[2022-01-03] MEDS ORDERED: NALOXONE HCL 0.4MG/ML VIAL IV PRN (12:45)
[2022-01-03] MEDS: SODIUM CHLORIDE 0.9% 1,000 ML IV SCH (13:00)
[2022-01-03 13:25] VITALS: BP 144/69
[2022-01-03 16:00] VITALS: BP 144/65
[2022-01-03 17:55] LABS: INR 1.1; PROTHROMBIN TIME 11.7 sec (9.6-11.0)
[2022-01-03 20:00] VITALS: BP 127/58
[2022-01-04] VITALS: BP 143/75
[2022-01-04 04:00] VITALS: BP 105/69
[2022-01-04 06:45] LABS: BASOPHILS % 0.4 % (0.0-2.0); EOSINOPHILS % 5.8 % (0.0-5.0); HEMOGLOBIN. 11.3 g/dL (12.0-16.0); LYMPHOCYTES % 19.5 % (20.0-50.0); MEAN CORPUSCULAR HEMOGLOBIN 28.3 pg (28.0-32.0); MEAN CORPUSCULAR VOLUME 85.2 fL (81.0-99.0); MEAN PLATELET VOLUME 8.3 fl (7.4-10.4); MONOCYTES % 12.6 % (2.0-8.0); NEUTROPHILS % 61.7 % (40.0-76.0); PLATELET 193 x1000/uL (130-400); RED BLOOD CELL COUNT 3.99 mill/uL (4.2-5.4); RED CELL DISTRIBUTION WIDTH 16.2 % (11.6-14.6)
[2022-01-04] MEDS ORDERED: LIDOCAINE HCL/EPINEPHRINE 1%-EPI 1:100,000 20 ML VIAL ONE (06:56)
[2022-01-04] MEDS ORDERED: POLYMYXIN B SULFATE 500000 UNITS/VIAL ONE (06:56)
[2022-01-04] MEDS ORDERED: VANCOMYCIN HCL 1 GM/VIAL ONE (07:11)
[2022-01-04 07:51] LABS: CHLORIDE 109 mEq/L (98-107)
[2022-01-04] MEDS ORDERED: CEFAZOLIN SODIUM 1000MG/VIAL ONE ×2 (07:57→08:06)
[2022-01-04] MEDS ORDERED: GLYCOPYRROLATE 0.2 MG/ML 2ML VIAL ONE (08:05)
[2022-01-04] MEDS ORDERED: DEXAMETHASONE 4MG/ML 1ML VIAL ONE (08:06)
[2022-01-04] MEDS ORDERED: ALBUMIN HUMAN 25GM/100ML (25%) IV ONE (08:10)
[2022-01-04] MEDS ORDERED: LABETALOL 5MG/ML SYR 20 MG/4 ML SYRINGE IV PRN (09:30)
[2022-01-04] MEDS ORDERED: ONDANSETRON HCL 4MG/2ML INJ IV PRN (09:30)
[2022-01-04] MEDS ORDERED: MEPERIDINE HCL/PF 25MG/ML CPJ IV PRN (09:30)
[2022-01-04] MEDS: HYDROMORPHONE HCL/PF 2MG/ML CPJ IV PRN ×2 (10:01→10:13)
[2022-01-04] MEDS ORDERED: MECLIZINE 25MG TABLET PO PRN (11:00)
[2022-01-04] MEDS: AMLODIPINE 2.5MG TABLET PO SCH (11:00)
[2022-01-04 12:00] VITALS: BP 139/63
[2022-01-04] MEDS: ASPIRIN 81MG EC TABLET PO SCH (12:23)
[2022-01-04] MEDS: HYDROCODONE/ACETAMINOPHEN 5/325MG TABLET PO PRN ×2 (12:26→23:58)
[2022-01-04] MEDS: BRIMONIDINE 0.2% OPHTH DROPS 5ML BOTHEYE SCH (14:33)
[2022-01-04] MEDS: KETOROLAC TROMETHAMINE 0.4% OPHTH 5ML EACHEYE SCH ×2 (14:34→19:46)
[2022-01-04 16:00] VITALS: BP 130/66
[2022-01-04] MEDS: SODIUM CHLORIDE 0.9% 1,000 ML IV SCH (19:46)
[2022-01-04] MEDS: CEFAZOLIN 1000MG PREMIX 50 ML IV SCH (19:46)
[2022-01-04 20:00] VITALS: BP 114/72
[2022-01-05] VITALS: BP 147/71
[2022-01-05] MEDS: KETOROLAC TROMETHAMINE 0.4% OPHTH 5ML EACHEYE SCH ×5 (00:01→20:43)
[2022-01-05] MEDS: BRIMONIDINE 0.2% OPHTH DROPS 5ML BOTHEYE SCH ×3 (02:08→10:09)
[2022-01-05] MEDS: CEFAZOLIN 1000MG PREMIX 50 ML IV SCH ×2 (02:12→08:43)
[2022-01-05] MEDS: LORAZEPAM 0.5MG TABLET PO PRN ×2 (02:21→20:43)
[2022-01-05 04:00] VITALS: BP 143/78
[2022-01-05] MEDS: HYDROCODONE/ACETAMINOPHEN 5/325MG TABLET PO PRN ×2 (05:17→08:49)
[2022-01-05 06:19] LABS: HEMATOCRIT. 33.2 % (36.0-48.0); HEMOGLOBIN. 10.9 g/dL (12.0-16.0); MEAN CORPUSCULAR HEMOGLOBIN 27.9 pg (28.0-32.0); MEAN CORPUSCULAR VOLUME 84.9 fL (81.0-99.0); MEAN PLATELET VOLUME 8.4 fl (7.4-10.4); PLATELET 191 x1000/uL (130-400); RED BLOOD CELL COUNT 3.91 mill/uL (4.2-5.4); RED CELL DISTRIBUTION WIDTH 16.3 % (11.6-14.6)
[2022-01-05 06:34] LABS: CHLORIDE 106 mEq/L (98-107)
[2022-01-05 08:00] VITALS: BP 146/69
[2022-01-05] MEDS: FAMOTIDINE 20MG TABLET PO SCH (08:48)
[2022-01-05] MEDS: SPIRONOLACTONE 25MG TABLET PO SCH (08:48)
[2022-01-05] MEDS: ASPIRIN 81MG EC TABLET PO SCH (08:48)
[2022-01-05] MEDS: AMLODIPINE 2.5MG TABLET PO SCH (08:48)
[2022-01-05] MEDS: ENOXAPARIN 40MG/0.4ML SYR SUBCUT SCH (08:49)
[2022-01-05 12:00] VITALS: BP 144/72
[2022-01-05 12:37] LABS: PLATELET ESTIMATE NORMAL
[2022-01-05] MEDS: HYDROCODONE/ACETAMINOPHEN 10/325MG TABLET PO PRN ×2 (12:54→17:52)
[2022-01-05 16:00] VITALS: BP 140/70
[2022-01-05 20:00] VITALS: BP 144/71
[2022-01-06] VITALS: BP 129/62
[2022-01-06] MEDS: BRIMONIDINE 0.2% OPHTH DROPS 5ML BOTHEYE SCH ×4 (00:16→23:08)
[2022-01-06] MEDS: HYDROCODONE/ACETAMINOPHEN 10/325MG TABLET PO PRN ×5 (00:26→23:07)
[2022-01-06] MEDS: LORAZEPAM 0.5MG TABLET PO PRN (03:00)
[2022-01-06 04:00] VITALS: BP 121/57
[2022-01-06 07:49] LABS: HEMATOCRIT. 33.9 % (36.0-48.0); HEMOGLOBIN. 10.9 g/dL (12.0-16.0); MEAN CORPUSCULAR HEMOGLOBIN 27.5 pg (28.0-32.0); MEAN CORPUSCULAR VOLUME 85.5 fL (81.0-99.0); MEAN PLATELET VOLUME 8.3 fl (7.4-10.4); PLATELET 214 x1000/uL (130-400); RED BLOOD CELL COUNT 3.96 mill/uL (4.2-5.4); RED CELL DISTRIBUTION WIDTH 16.2 % (11.6-14.6)
[2022-01-06 08:00] VITALS: BP 135/66
[2022-01-06 08:33] LABS: PLATELET ESTIMATE NORMAL
[2022-01-06] MEDS: SPIRONOLACTONE 25MG TABLET PO SCH (09:00)
[2022-01-06] MEDS: AMLODIPINE 2.5MG TABLET PO SCH (10:05)
[2022-01-06] MEDS: KETOROLAC TROMETHAMINE 0.4% OPHTH 5ML EACHEYE SCH ×4 (10:05→23:07)
[2022-01-06] MEDS: ENOXAPARIN 40MG/0.4ML SYR SUBCUT SCH (10:05)
[2022-01-06] MEDS: FAMOTIDINE 20MG TABLET PO SCH (10:05)
[2022-01-06] MEDS: ASPIRIN 81MG EC TABLET PO SCH (10:06)
[2022-01-06 12:00] VITALS: BP 142/70
[2022-01-06] MEDS ORDERED: LACTULOSE 20G/30ML UDC PO NR (12:30)
[2022-01-06] MEDS: POLYETHYLENE GLYCOL 3350 (17GM) 1 DOSE PACK PO SCH (13:06)
[2022-01-06 16:00] VITALS: BP 147/68
[2022-01-06] MEDS: DOCUSATE SODIUM 100MG CAPSULE PO SCH (17:40)
[2022-01-06 20:00] VITALS: BP 128/58
[2022-01-07] VITALS: BP 135/61
[2022-01-07] MEDS: LORAZEPAM 0.5MG TABLET PO PRN ×3 (00:28→13:41)
[2022-01-07 04:00] VITALS: BP 128/58
[2022-01-07] MEDS: HYDROCODONE/ACETAMINOPHEN 10/325MG TABLET PO PRN ×3 (04:03→21:01)
[2022-01-07] MEDS: BRIMONIDINE 0.2% OPHTH DROPS 5ML BOTHEYE SCH ×2 (06:04→15:21)
[2022-01-07 07:47] LABS: HEMATOCRIT. 34.5 % (36.0-48.0); HEMOGLOBIN. 11.2 g/dL (12.0-16.0); MEAN CORPUSCULAR HEMOGLOBIN 27.6 pg (28.0-32.0); MEAN CORPUSCULAR VOLUME 84.8 fL (81.0-99.0); MEAN PLATELET VOLUME 8.4 fl (7.4-10.4); PLATELET 223 x1000/uL (130-400); RED BLOOD CELL COUNT 4.07 mill/uL (4.2-5.4)
[2022-01-07 08:00] VITALS: BP 125/71
[2022-01-07 08:41] LABS: CHLORIDE 105 mEq/L (98-107)
[2022-01-07] MEDS: FAMOTIDINE 20MG TABLET PO SCH (08:55)
[2022-01-07] MEDS: ENOXAPARIN 40MG/0.4ML SYR SUBCUT SCH (08:56)
[2022-01-07] MEDS: ASPIRIN 81MG EC TABLET PO SCH (08:56)
[2022-01-07] MEDS: AMLODIPINE 2.5MG TABLET PO SCH (08:56)
[2022-01-07] MEDS: SPIRONOLACTONE 25MG TABLET PO SCH (08:57)
[2022-01-07] MEDS: KETOROLAC TROMETHAMINE 0.4% OPHTH 5ML EACHEYE SCH ×4 (08:57→21:02)
[2022-01-07] MEDS: DOCUSATE SODIUM 100MG CAPSULE PO SCH ×2 (08:57→18:47)
[2022-01-07] MEDS: POLYETHYLENE GLYCOL 3350 (17GM) 1 DOSE PACK PO SCH (08:58)
[2022-01-07 12:00] VITALS: BP 147/66
[2022-01-07 14:23] LABS: PLATELET ESTIMATE NORMAL
[2022-01-07 16:00] VITALS: BP 143/75
[2022-01-07 20:00] VITALS: BP 139/90
[2022-01-08] VITALS: BP 99/52
[2022-01-08] MEDS: BRIMONIDINE 0.2% OPHTH DROPS 5ML BOTHEYE SCH ×4 (01:27→22:45)
[2022-01-08] MEDS: HYDROCODONE/ACETAMINOPHEN 10/325MG TABLET PO PRN ×3 (01:39→22:34)
[2022-01-08 04:00] VITALS: BP 140/71
[2022-01-08 07:12] LABS: HEMATOCRIT. 34.2 % (36.0-48.0); HEMOGLOBIN. 11.3 g/dL (12.0-16.0); MEAN CORPUSCULAR HEMOGLOBIN 28.1 pg (28.0-32.0); MEAN CORPUSCULAR VOLUME 84.9 fL (81.0-99.0); MEAN PLATELET VOLUME 8.6 fl (7.4-10.4); PLATELET 222 x1000/uL (130-400); RED BLOOD CELL COUNT 4.02 mill/uL (4.2-5.4); RED CELL DISTRIBUTION WIDTH 15.5 % (11.6-14.6)
[2022-01-08 08:10] LABS: CHLORIDE 105 mEq/L (98-107)
[2022-01-08] MEDS: LORAZEPAM 0.5MG TABLET PO PRN (08:15)
[2022-01-08] MEDS: KETOROLAC TROMETHAMINE 0.4% OPHTH 5ML EACHEYE SCH ×4 (09:00→22:36)
[2022-01-08] MEDS: POLYETHYLENE GLYCOL 3350 (17GM) 1 DOSE PACK PO SCH (09:00)
[2022-01-08] MEDS: AMLODIPINE 2.5MG TABLET PO SCH ×2 (09:38→09:46)
[2022-01-08] MEDS: ASPIRIN 81MG EC TABLET PO SCH (09:38)
[2022-01-08] MEDS: FAMOTIDINE 20MG TABLET PO SCH (09:38)
[2022-01-08] MEDS: DOCUSATE SODIUM 100MG CAPSULE PO SCH ×2 (09:38→17:27)
[2022-01-08] MEDS: SPIRONOLACTONE 25MG TABLET PO SCH (09:39)
[2022-01-08] MEDS: ENOXAPARIN 40MG/0.4ML SYR SUBCUT SCH (09:39)
[2022-01-08 11:14] LABS: BG BASE EXCESS -5.4 mmol/L (-2.0-2.0); BG DEOXYHEMOGLOBIN 4.4 % (0.0-5.0); BG HCO3 ACT 18.8 mmol/L (22.0-26.0); BG METHEMOGLOBIN 0.7 % (0.0-1.5); BG OXYGEN SATURATION 95.6 % (92.0-98.5); BG OXYHEMOGLOBIN 94.9 % (94.0-97.0); BG PCO2 32.3 mmHg (35.0-45.0); BG PH 7.383 (7.350-7.450); BG PO2 80.5 mmHg (75.0-100.0); BG SAMPLE SITE RIGHT BRACHIAL; BG TOTAL HEMOGLOBIN 11.8 g/dL (12.0-18.0); BG VENT MODE ROOM AIR
[2022-01-08 20:00] VITALS: BP 141/65
[2022-01-09] VITALS: BP 107/51
[2022-01-09 00:12] LABS: PLATELET ESTIMATE NORMAL
[2022-01-09] MEDS: HYDROCODONE/ACETAMINOPHEN 10/325MG TABLET PO PRN ×5 (02:47→22:06)
[2022-01-09 04:00] VITALS: BP 134/60
[2022-01-09] MEDS: BRIMONIDINE 0.2% OPHTH DROPS 5ML BOTHEYE SCH ×3 (06:30→22:30)
[2022-01-09 08:00] VITALS: BP 133/67
[2022-01-09] MEDS ORDERED: DEXTROSE 50% WATER 50ML SYRINGE IV PRN (08:00)
[2022-01-09] MEDS: KETOROLAC TROMETHAMINE 0.4% OPHTH 5ML EACHEYE SCH ×4 (08:46→22:29)
[2022-01-09] MEDS: ASPIRIN 81MG EC TABLET PO SCH (08:46)
[2022-01-09] MEDS: DOCUSATE SODIUM 100MG CAPSULE PO SCH ×2 (08:46→18:04)
[2022-01-09] MEDS: POLYETHYLENE GLYCOL 3350 (17GM) 1 DOSE PACK PO SCH (08:47)
[2022-01-09] MEDS: FAMOTIDINE 20MG TABLET PO SCH (08:47)
[2022-01-09 09:07] LABS: CHLORIDE 104 mEq/L (98-107)
[2022-01-09 09:19] LABS: MEAN CORPUSCULAR HEMOGLOBIN 28.2 pg (28.0-32.0); MEAN CORPUSCULAR VOLUME 84.8 fL (81.0-99.0); MEAN PLATELET VOLUME 8.4 fl (7.4-10.4); PLATELET 263 x1000/uL (130-400); RED BLOOD CELL COUNT 3.89 mill/uL (4.2-5.4); RED CELL DISTRIBUTION WIDTH 15.6 % (11.6-14.6)
[2022-01-09] MEDS: ENOXAPARIN 40MG/0.4ML SYR SUBCUT SCH (10:05)
[2022-01-09 12:00] VITALS: BP 134/72
[2022-01-09] MEDS: BLOOD SUGAR DIAGNOSTIC STRIP TEST SCH ×3 (12:49→21:00)
[2022-01-09] MEDS: SPIRONOLACTONE 25MG TABLET PO SCH (12:50)
[2022-01-09] MEDS: INSULIN LISPRO 100 UNITS/ML SUBCUT SCH ×3 (13:26→21:00)
[2022-01-09 16:00] VITALS: BP 150/59
[2022-01-09 20:00] VITALS: BP 133/63
[2022-01-09 23:05] LABS: PLATELET ESTIMATE NORMAL
[2022-01-10] VITALS: BP 121/54
[2022-01-10 04:00] VITALS: BP 154/77
[2022-01-10] MEDS: BRIMONIDINE 0.2% OPHTH DROPS 5ML BOTHEYE SCH ×3 (05:14→22:53)
[2022-01-10] MEDS: HYDROCODONE/ACETAMINOPHEN 10/325MG TABLET PO PRN ×2 (05:14→13:23)
[2022-01-10] MEDS: BLOOD SUGAR DIAGNOSTIC STRIP TEST SCH ×4 (05:46→21:00)
[2022-01-10 08:00] VITALS: BP 161/70
[2022-01-10] MEDS: POLYETHYLENE GLYCOL 3350 (17GM) 1 DOSE PACK PO SCH (08:54)
[2022-01-10] MEDS: KETOROLAC TROMETHAMINE 0.4% OPHTH 5ML EACHEYE SCH ×4 (08:54→20:49)
[2022-01-10] MEDS: FAMOTIDINE 20MG TABLET PO SCH (08:55)
[2022-01-10] MEDS: SPIRONOLACTONE 25MG TABLET PO SCH (08:55)
[2022-01-10] MEDS: AMLODIPINE 2.5MG TABLET PO SCH (08:55)
[2022-01-10] MEDS: DOCUSATE SODIUM 100MG CAPSULE PO SCH ×2 (08:55→17:57)
[2022-01-10] MEDS: ASPIRIN 81MG EC TABLET PO SCH (08:56)
[2022-01-10] MEDS: ENOXAPARIN 40MG/0.4ML SYR SUBCUT SCH (08:57)
[2022-01-10] MEDS: INSULIN LISPRO 100 UNITS/ML SUBCUT SCH ×4 (09:24→21:00)
[2022-01-10 12:00] VITALS: BP 127/72
[2022-01-10 16:22] VITALS: BP 118/61
[2022-01-10 20:00] VITALS: BP 118/57
[2022-01-11] VITALS: BP 120/48
[2022-01-11] MEDS: HYDROCODONE/ACETAMINOPHEN 10/325MG TABLET PO PRN ×2 (01:01→12:52)
[2022-01-11 04:00] VITALS: BP 138/70
[2022-01-11] MEDS: BLOOD SUGAR DIAGNOSTIC STRIP TEST SCH ×4 (07:20→21:00)
[2022-01-11] MEDS: SPIRONOLACTONE 25MG TABLET PO SCH (08:41)
[2022-01-11] MEDS: FAMOTIDINE 20MG TABLET PO SCH (08:42)
[2022-01-11] MEDS: DOCUSATE SODIUM 100MG CAPSULE PO SCH ×2 (08:42→18:46)
[2022-01-11] MEDS: POLYETHYLENE GLYCOL 3350 (17GM) 1 DOSE PACK PO SCH (08:42)
[2022-01-11] MEDS: AMLODIPINE 2.5MG TABLET PO SCH (08:42)
[2022-01-11] MEDS: ASPIRIN 81MG EC TABLET PO SCH (08:42)
[2022-01-11] MEDS: KETOROLAC TROMETHAMINE 0.4% OPHTH 5ML EACHEYE SCH ×4 (08:43→22:25)
[2022-01-11] MEDS: ENOXAPARIN 40MG/0.4ML SYR SUBCUT SCH (08:44)
[2022-01-11] MEDS: INSULIN LISPRO 100 UNITS/ML SUBCUT SCH ×4 (09:02→23:38)
[2022-01-11 12:00] VITALS: BP 141/63
[2022-01-11] MEDS: BRIMONIDINE 0.2% OPHTH DROPS 5ML BOTHEYE SCH ×2 (14:00→22:26)
[2022-01-11 16:00] VITALS: BP 127/59
[2022-01-11 20:00] VITALS: BP 131/63
[2022-01-12] VITALS: BP 128/65
[2022-01-12 04:00] VITALS: BP 128/66
[2022-01-12] MEDS: BRIMONIDINE 0.2% OPHTH DROPS 5ML BOTHEYE SCH ×3 (06:00→20:50)
[2022-01-12] MEDS: BLOOD SUGAR DIAGNOSTIC STRIP TEST SCH ×4 (07:37→20:33)
[2022-01-12] MEDS: INSULIN LISPRO 100 UNITS/ML SUBCUT SCH ×4 (07:38→20:41)
[2022-01-12 08:00] VITALS: BP 141/62
[2022-01-12] MEDS: ASPIRIN 81MG EC TABLET PO SCH (08:59)
[2022-01-12] MEDS: KETOROLAC TROMETHAMINE 0.4% OPHTH 5ML EACHEYE SCH ×4 (08:59→20:41)
[2022-01-12] MEDS: DOCUSATE SODIUM 100MG CAPSULE PO SCH ×2 (08:59→18:17)
[2022-01-12] MEDS: AMLODIPINE 2.5MG TABLET PO SCH (09:00)
[2022-01-12] MEDS: POLYETHYLENE GLYCOL 3350 (17GM) 1 DOSE PACK PO SCH (09:00)
[2022-01-12] MEDS: ENOXAPARIN 40MG/0.4ML SYR SUBCUT SCH (09:00)
[2022-01-12] MEDS: FAMOTIDINE 20MG TABLET PO SCH (09:00)
[2022-01-12] MEDS: SPIRONOLACTONE 25MG TABLET PO SCH (09:04)
[2022-01-12 09:25] LABS: FOLIC ACID (FOLATE) SERUM 7.7 ng/mL (>5.38)
[2022-01-12 12:00] VITALS: BP 118/62
[2022-01-12] MEDS: HYDROCODONE/ACETAMINOPHEN 10/325MG TABLET PO PRN (13:05)
[2022-01-12 16:00] VITALS: BP 122/59
[2022-01-12 20:00] VITALS: BP 119/59
[2022-01-13] VITALS: BP 137/66
[2022-01-13] MEDS: HYDROCODONE/ACETAMINOPHEN 10/325MG TABLET PO PRN (05:01)
[2022-01-13] MEDS: BRIMONIDINE 0.2% OPHTH DROPS 5ML BOTHEYE SCH ×2 (05:02→14:00)
[2022-01-13] MEDS: BLOOD SUGAR DIAGNOSTIC STRIP TEST SCH ×3 (07:20→18:11)
[2022-01-13] MEDS ORDERED: CYANOCOBALAMIN 1000MCG TABLET PO SCH (07:50)
[2022-01-13 08:00] VITALS: BP 129/60
[2022-01-13] MEDS: ASPIRIN 81MG EC TABLET PO SCH (08:38)
[2022-01-13] MEDS: SPIRONOLACTONE 25MG TABLET PO SCH (08:39)
[2022-01-13] MEDS: AMLODIPINE 2.5MG TABLET PO SCH (08:39)
[2022-01-13] MEDS: POLYETHYLENE GLYCOL 3350 (17GM) 1 DOSE PACK PO SCH (08:39)
[2022-01-13] MEDS: DOCUSATE SODIUM 100MG CAPSULE PO SCH ×2 (08:39→18:11)
[2022-01-13] MEDS: KETOROLAC TROMETHAMINE 0.4% OPHTH 5ML EACHEYE SCH ×3 (08:40→16:53)
[2022-01-13] MEDS: INSULIN LISPRO 100 UNITS/ML SUBCUT SCH ×3 (08:58→18:28)
[2022-01-13] MEDS: ENOXAPARIN 40MG/0.4ML SYR SUBCUT SCH (10:09)
[2022-01-13] MEDS: FAMOTIDINE 20MG TABLET PO SCH (10:09)
[2022-01-13 12:00] VITALS: BP 120/68
[2022-01-13 16:00] VITALS: BP 117/68
[2022-01-13 17:04] VITALS: BP 117/63
== END 2022-01-13 19:51 | DRG 480 ==
LOC: ER 04:52 → EDBEDREQ 06:13 → EDBEDREQTM 09:00 → ENRESERV 09:53 → 6EST 10:04 → EDBEDREQ 10:06 → 6EST 11:17
PROVIDERS: ADMIT Internal Medicine; ATTEND Internal Medicine
PROC: 0QH734Z Insertion of Internal Fixation Device into Left Upper Femur, Percutaneous Approach (ICD-10-PCS; principal; 2022-01-04)
DX: S72.012A Unspecified intracapsular fracture of left femur, initial encounter for closed fracture (principal); G93.41 Metabolic encephalopathy; I11.0 Hypertensive heart disease with heart failure; I50.9 Heart failure, unspecified; E11.9 Type 2 diabetes mellitus without complications; J45.909 Unspecified asthma, uncomplicated; D64.9 Anemia, unspecified; Z20.822 Contact with and (suspected) exposure to COVID-19; R26.89 Other abnormalities of gait and mobility; E78.5 Hyperlipidemia, unspecified; H40.9 Unspecified glaucoma; Z96.641 Presence of right artificial hip joint; G62.9 Polyneuropathy, unspecified; H54.8 Legal blindness, as defined in USA; Z88.8 Allergy status to other drugs, medicaments and biological substances; Z79.899 Other long term (current) drug therapy; Z95.828 Presence of other vascular implants and grafts; Z80.6 Family history of leukemia; W18.30XA Fall on same level, unspecified, initial encounter; Y93.89 Activity, other specified; Y92.89 Other specified places as the place of occurrence of the external cause; Y99.8 Other external cause status
CPT/HCPCS: 36415; 36600; 72192; 73502; 73552; 76000; 80048; 80053; 80061; 82306; 82375; 82607; 82746; 82805; 82962; 83036; 83605; 84443; 85025; 86850; 86900; 87426; 93005; 93970; 97110; 97162; 97166; 97530; 97535; 99285; A6261; C1713; J0690; J1100; J1170; J1650; J1815; J2270; J2405; J3370; J3490; J7030; J8597; P9047; A4315

== ENCOUNTER 2022-02-09 16:32 | Inpatient (IN) | payer MEDICARE, MEDICAID ==
[~2022-02-09] VITALS: Ht 167.6 cm; Wt 77.1 kg
[2022-02-09 19:30] LABS: EOSINOPHILS % 3.2 % (0.0-5.0); HEMATOCRIT. 36.5 % (36.0-48.0); HEMOGLOBIN. 11.8 g/dL (12.0-16.0); LYMPHOCYTES % 32.4 % (20.0-50.0); MEAN CORPUSCULAR HEMOGLOBIN 27.6 pg (28.0-32.0); MEAN CORPUSCULAR VOLUME 85.1 fL (81.0-99.0); MEAN PLATELET VOLUME 7.5 fl (7.4-10.4); MONOCYTES % 10.2 % (2.0-8.0); NEUTROPHILS % 53.2 % (40.0-76.0); PLATELET 321 x1000/uL (130-400); RED BLOOD CELL COUNT 4.28 mill/uL (4.2-5.4); RED CELL DISTRIBUTION WIDTH 14.9 % (11.6-14.6)
[2022-02-09 19:45] LABS: CHLORIDE 102 mEq/L (98-107)
[2022-02-09] MEDS ORDERED: MECLIZINE 25MG TABLET PO ONE (23:45)
[2022-02-09] MEDS ORDERED: ACETAMINOPHEN 325MG TABLET PO ONE (23:45)
[2022-02-10] MEDS ORDERED: CLONIDINE 0.1MG TABLET PO PRN (04:00)
[2022-02-10] MEDS ORDERED: ACETAMINOPHEN 325MG TABLET PO PRN ×2 (04:00)
[2022-02-10] MEDS ORDERED: ONDANSETRON HCL 4MG/2ML INJ IV PRN (04:00)
[2022-02-10] MEDS ORDERED: IPRATROPIUM/ALBUTEROL 0.5-3(2.5)MG/3ML NEB HHN PRN (04:00)
[2022-02-10] MEDS ORDERED: MAGNESIUM/ALUMINUM HYDROXIDE/SIMETHICONE 30ML UDC PO PRN (04:00)
[2022-02-10] MEDS ORDERED: DEXTROSE 50% WATER 50ML SYRINGE IV PRN (04:15)
[2022-02-10] MEDS ORDERED: MECLIZINE 25MG TABLET PO PRN (04:45)
[2022-02-10] MEDS: HYDROCODONE/ACETAMINOPHEN 5/325MG TABLET PO PRN (06:11)
[2022-02-10] MEDS: BRIMONIDINE 0.2% OPHTH DROPS 5ML EACHEYE SCH ×3 (06:19→22:04)
[2022-02-10] MEDS: BLOOD SUGAR DIAGNOSTIC STRIP TEST SCH ×4 (06:23→20:51)
[2022-02-10] MEDS: INSULIN LISPRO 100 UNITS/ML SUBCUT SCH ×4 (06:24→20:51)
[2022-02-10] MEDS ORDERED: BRIMONIDINE TARTRATE OP SCH (09:00)
[2022-02-10] MEDS: KETOROLAC TROMETHAMINE 0.4% OPHTH 5ML EACHEYE SCH ×4 (09:00→22:03)
[2022-02-10 09:38] VITALS: BP_SYST 159; BP_DIAS 69; BP_DIAS 79
[2022-02-10] MEDS: ASPIRIN 81MG EC TABLET PO SCH (10:54)
[2022-02-10] MEDS: FAMOTIDINE 20MG TABLET PO SCH (10:54)
[2022-02-10] MEDS: AMLODIPINE 2.5MG TABLET PO SCH (10:54)
[2022-02-10] MEDS: IBUPROFEN 800MG TABLET PO SCH (10:54)
[2022-02-10] MEDS: ENOXAPARIN 30MG/0.3ML SYR SUBCUT SCH (10:55)
[2022-02-10] MEDS: SPIRONOLACTONE 25MG TABLET PO SCH (10:55)
[2022-02-10 12:00] VITALS: BP 111/59
[2022-02-10 15:49] LABS: BASOPHILS % 0.8 % (0.0-2.0); EOSINOPHILS % 3.2 % (0.0-5.0); HEMATOCRIT. 33.6 % (36.0-48.0); LYMPHOCYTES % 37.4 % (20.0-50.0); MEAN CORPUSCULAR HEMOGLOBIN 27.7 pg (28.0-32.0); MEAN CORPUSCULAR VOLUME 84.6 fL (81.0-99.0); MEAN PLATELET VOLUME 7.7 fl (7.4-10.4); MONOCYTES % 11.6 % (2.0-8.0); PLATELET 289 x1000/uL (130-400); RED BLOOD CELL COUNT 3.97 mill/uL (4.2-5.4); RED CELL DISTRIBUTION WIDTH 14.5 % (11.6-14.6)
[2022-02-10 15:56] VITALS: BP 112/58
[2022-02-10 16:05] LABS: CHLORIDE 108 mEq/L (98-107)
[2022-02-10 16:19] LABS: HDL CHOLESTEROL 40 mg/dL (40-59); LDL CHOLESTEROL 54 mg/dL (5-100); T4 FREE 1.24 ng/dL (0.76-1.46)
[2022-02-10 20:00] VITALS: BP 151/69
[2022-02-11] VITALS: BP 122/94
[2022-02-11 04:00] VITALS: BP 123/78
[2022-02-11] MEDS: BRIMONIDINE 0.2% OPHTH DROPS 5ML EACHEYE SCH ×3 (05:23→21:55)
[2022-02-11] MEDS: BLOOD SUGAR DIAGNOSTIC STRIP TEST SCH ×4 (06:40→21:38)
[2022-02-11] MEDS: INSULIN LISPRO 100 UNITS/ML SUBCUT SCH ×4 (06:40→21:00)
[2022-02-11 08:00] VITALS: BP 135/71
[2022-02-11 08:02] LABS: BASOPHILS % 0.6 % (0.0-2.0); EOSINOPHILS % 1.7 % (0.0-5.0); HEMATOCRIT. 34.3 % (36.0-48.0); HEMOGLOBIN. 11.3 g/dL (12.0-16.0); LYMPHOCYTES % 26.4 % (20.0-50.0); MEAN CORPUSCULAR HEMOGLOBIN 27.8 pg (28.0-32.0); MEAN CORPUSCULAR VOLUME 84.7 fL (81.0-99.0); MEAN PLATELET VOLUME 7.5 fl (7.4-10.4); NEUTROPHILS % 62.3 % (40.0-76.0); PLATELET 294 x1000/uL (130-400); RED BLOOD CELL COUNT 4.05 mill/uL (4.2-5.4); RED CELL DISTRIBUTION WIDTH 14.4 % (11.6-14.6)
[2022-02-11] MEDS: ENOXAPARIN 30MG/0.3ML SYR SUBCUT SCH (08:10)
[2022-02-11] MEDS: KETOROLAC TROMETHAMINE 0.4% OPHTH 5ML EACHEYE SCH ×4 (08:10→21:55)
[2022-02-11] MEDS: IBUPROFEN 800MG TABLET PO SCH (08:11)
[2022-02-11] MEDS: SPIRONOLACTONE 25MG TABLET PO SCH (08:11)
[2022-02-11] MEDS: ASPIRIN 81MG EC TABLET PO SCH (08:11)
[2022-02-11] MEDS: FAMOTIDINE 20MG TABLET PO SCH (08:11)
[2022-02-11] MEDS: AMLODIPINE 2.5MG TABLET PO SCH (08:11)
[2022-02-11 08:26] LABS: CHLORIDE 105 mEq/L (98-107)
[2022-02-11 08:43] LABS: TOTAL IRON BINDING CAPACITY 244 ug/dL (250-450)
[2022-02-11 09:26] LABS: FOLIC ACID (FOLATE) SERUM 8.9 ng/mL (>5.38)
[2022-02-11 12:00] VITALS: BP 129/64
[2022-02-11] MEDS: HYDROCODONE/ACETAMINOPHEN 5/325MG TABLET PO PRN (12:27)
[2022-02-11] MEDS ORDERED: FERR-63 PO ×3 (15:42→15:46)
[2022-02-11] MEDS ORDERED: MECL-159 MT ×3 (15:42→15:46)
[2022-02-11] MEDS ORDERED: MECLIZINE 25MG TABLET PO PRN (15:45)
[2022-02-11 16:00] VITALS: BP 136/70
[2022-02-11] MEDS: FERROUS SULFATE 325MG TABLET PO SCH (16:22)
[2022-02-11 20:00] VITALS: BP 130/62
[2022-02-12] VITALS: BP 149/65
[2022-02-12] MEDS: HYDROCODONE/ACETAMINOPHEN 5/325MG TABLET PO PRN ×2 (01:01→15:15)
[2022-02-12 04:00] VITALS: BP 129/66
[2022-02-12] MEDS: BRIMONIDINE 0.2% OPHTH DROPS 5ML EACHEYE SCH ×2 (05:32→13:33)
[2022-02-12] MEDS: INSULIN LISPRO 100 UNITS/ML SUBCUT SCH ×2 (05:56→13:34)
[2022-02-12] MEDS: BLOOD SUGAR DIAGNOSTIC STRIP TEST SCH ×2 (05:56→13:15)
[2022-02-12 06:41] LABS: CHLORIDE 106 mEq/L (98-107)
[2022-02-12 06:42] LABS: EOSINOPHILS % 3.9 % (0.0-5.0); HEMATOCRIT. 35.7 % (36.0-48.0); HEMOGLOBIN. 11.6 g/dL (12.0-16.0); LYMPHOCYTES % 41.1 % (20.0-50.0); MEAN CORPUSCULAR VOLUME 85.8 fL (81.0-99.0); MEAN PLATELET VOLUME 7.3 fl (7.4-10.4); MONOCYTES % 12.8 % (2.0-8.0); NEUTROPHILS % 41.2 % (40.0-76.0); PLATELET 311 x1000/uL (130-400); RED BLOOD CELL COUNT 4.16 mill/uL (4.2-5.4); RED CELL DISTRIBUTION WIDTH 14.6 % (11.6-14.6)
[2022-02-12 08:00] VITALS: BP 123/56
[2022-02-12] MEDS: ASPIRIN 81MG EC TABLET PO SCH (09:29)
[2022-02-12] MEDS: KETOROLAC TROMETHAMINE 0.4% OPHTH 5ML EACHEYE SCH ×2 (09:29→13:34)
[2022-02-12] MEDS: ENOXAPARIN 30MG/0.3ML SYR SUBCUT SCH (09:29)
[2022-02-12] MEDS: SPIRONOLACTONE 25MG TABLET PO SCH (09:30)
[2022-02-12] MEDS: FERROUS SULFATE 325MG TABLET PO SCH (09:30)
[2022-02-12] MEDS: IBUPROFEN 800MG TABLET PO SCH (09:30)
[2022-02-12] MEDS: AMLODIPINE 2.5MG TABLET PO SCH (09:30)
[2022-02-12] MEDS: FAMOTIDINE 20MG TABLET PO SCH (09:31)
[2022-02-12 12:00] VITALS: BP 112/74
[2022-02-12 14:21] VITALS: BP 118/62
[2022-02-12 16:00] VITALS: BP 116/69
[2022-02-12] MEDS ORDERED: NALOXONE HCL 0.4MG/ML VIAL IV PRN (18:15)
== END 2022-02-12 17:15 | DRG 392 ==
LOC: ER 16:32 → MICUSO 23:43 → 7WST 02-10 10:45
PROVIDERS: ADMIT Internal Medicine; ATTEND Internal Medicine
DX: K21.9 Gastro-esophageal reflux disease without esophagitis (principal); E87.1 Hypo-osmolality and hyponatremia; R07.2 Precordial pain; I11.0 Hypertensive heart disease with heart failure; J45.909 Unspecified asthma, uncomplicated; I50.9 Heart failure, unspecified; M25.552 Pain in left hip; E11.9 Type 2 diabetes mellitus without complications; Z88.8 Allergy status to other drugs, medicaments and biological substances; Z79.899 Other long term (current) drug therapy; Z95.828 Presence of other vascular implants and grafts; Z96.641 Presence of right artificial hip joint; Z79.82 Long term (current) use of aspirin; Z86.718 Personal history of other venous thrombosis and embolism
CPT/HCPCS: 36415; 71045; 73521; 80053; 80061; 82607; 82728; 82746; 82962; 83036; 83540; 83550; 83880; 84439; 84443; 84484; 85025; 85379; 93005; 93970; 97162; 97166; 97530; 99285; A6261; C1893; J1650; J1815; J8597